=== PATIENT | female | born 1935 | race Caucasian/White ===

== ENCOUNTER → 2017-05-11 | Outpatient (CLI) | payer OTHER ==
[~2017-05-11] MED LIST: DEPO METHYLPREDNISOLONE 40 MG/ML SDV ONE; DEPO METHYLPREDNISOLONE 80 MG/ML SDV ONE; IOPAMIDOL (ISOVUE 370) 100 ML BTL IV ONE; LIDOCAINE 1% 300 MG/30 ML SDV ONE; ROPIVACAINE HCL 150 MG/30 ML INJ ONE
== END ==
LOC: FIMAGING 14:03
PROVIDERS: ATTEND Physician Assistant
PROC: 3E0U3BZ Introduction of Anesthetic Agent into Joints, Percutaneous Approach (ICD-10-PCS; principal; 2017-05-11)
PROC: 3E0U33Z Introduction of Anti-inflammatory into Joints, Percutaneous Approach (ICD-10-PCS; principal; 2017-05-11)
DX: M16.12 Unilateral primary osteoarthritis, left hip (principal)
CPT/HCPCS: 20610; 77002; J1030; J2795; Q9967; J1040

== ENCOUNTER 2017-05-20 14:20 | Inpatient (IN) | payer OTHER ==
[2017-05-20] MEDS ORDERED: fentaNYL 100 MCG/2 ML INJ IVP ONE (14:55)
--- NOTE | 2017-05-20 17:31 | EDPHY ---
H & P Time Seen by Provider: 05/20/17 14:22 HPI/ROS: CHIEF COMPLAINT: Left hip pain after fall HISTORY OF PRESENT ILLNESS: 81-year-old female presents to the emergency department by ambulance after she had a mechanical fall at home just prior to arrival. The patient has a history of severe osteoarthritis in both hips, especially her left hip. She is scheduled to have surgery by Dr. Isaias Beltre on 06/28/2017. She has been using a walker to help her get around at home over the last 2-3 weeks. Today apparently she lost her balance and then fell injuring her left hip. She was unable to get up off the ground and waited for her to come home about 30 minutes later and he called EMS to bring her to the hospital since he was able to pick her up off the floor. She denies losing consciousness. She does report hitting her head. Denies neck or back pain. Denies chest pain or difficulty breathing. Denies abdominal pain. She denies any presyncopal symptoms prior to her fall. Denies injury to the upper extremities or her right lower extremity. Denies pain in her left knee or ankle. REVIEW OF SYSTEMS: Constitutional: No fever, no chills. Eyes: No double or blurry vision. ENT: No sore throat. Respiratory: No cough, no shortness of breath. Cardiac: No chest pain. Gastrointestinal: No abdominal pain, vomiting or diarrhea. Genitourinary: No dysuria. Musculoskeletal: No neck or back pain. Skin: No rashes. Neurological: No headache. Past Medical/Surgical History: Left mastectomy, left knee replacement Social History: and lives independently with her in [place] Smoking Status: Never smoked Physical Exam: General Appearance: Alert, no distress. Mentating normally and answering questions appropriately. Her is at bedside. Patient has superficial abrasion and hematoma to the posterior right side of the scalp just superior to the mastoid bone. No palpable crepitus or other bony abnormality. Eyes: Pupils equal and round. Extraocular motions are all intact. ENT: Mouth: Mucous membranes moist. No dental injury or malocclusion. Respiratory: No wheezing, rhonchi, or rales, lungs are clear to auscultation. Cardiovascular: Regular rate and rhythm. Gastrointestinal: Abdomen is soft and nontender, no masses, no rebound or guarding, bowel sounds normal. Neurological: Alert and oriented x 3, cranial nerves II through XII grossly intact Skin: Hematoma with superficial abrasion to the right posterior aspect of the scalp as noted above. No suturable laceration. Warm and dry, no rashes. Musculoskeletal: Nontender to palpate along the cervical, thoracic or lumbar spine. Neck is supple. Extremities: Limited range of motion of the left hip secondary to pain. Her left leg appeared shortened compared to the right side. Nontender to palpate the left knee or left ankle. Full range of motion of the right lower extremity and upper extremities bilaterally. Psychiatric: Patient is oriented X 3, there is no agitation. Constitutional: Initial Vital Signs Temperature (C) 36.8 C 05/20/17 14:20 Heart Rate 98 05/20/17 14:20 Respiratory Rate 16 05/20/17 14:20 Blood Pressure 162/81 H 05/20/17 14:20 O2 Sat (%) 92 05/20/17 14:20 O2 Delivery Mode Room Air O2 (L/minute) 3 Allergies/Adverse Reactions: midazolam HCl [From Versed] Allergy (Verified 05/02/17 10:06) Other-Enter Comments Penicillins Allergy (Verified 05/02/17 10:06) Other-Enter Comments Home Medications: Medication Instructions Recorded Ascorbic Acid [Vitamin C 500 mg 500 mg PO DAILY 10/31/13 (OTC)] Aspirin [Aspirin 81mg (OTC)] 81 mg PO DAILY 10/31/13 Cholecalciferol Vit D3 [Vitamin D3 2,000 units PO DAILY 10/31/13 2000 units (OTC)] Glucosamine/Chondroitin 1 each PO DAILY 10/31/13 [Glucosamine/Chondroitin (OTC)] Ibuprofen [Motrin 600 mg (RX)] 600 mg PO BID PRN 10/31/13 Herbals/Supplements -Info Only 1 ea PO DAILY 04/25/17 Medical Decision Making - Diagnostics Imaging Results: Imaging Impressions Head CT 05/20/17 14:35 Impression: 1. Mild age-related atrophy. 2. No hemorrhage, mass effect, or definite acute peripheral infarct. 3. Mild microvascular ischemic disease. Findings discussed with Bernie Jolly PA-C at 16:29 hour, 05/20/2017. Hip X-Ray 05/20/17 14:35 Impression: Bilateral hip osteoarthritis, severe. No fracture identified. Extremity CT 05/20/17 16:37 Impression: 1. Marked degenerative changes left hip joint without evidence of acute fracture. Findings discussed with the medical certification specialist with Bernie Jolly PA-C at 17 :13 hour, 05/20/2017. ED Course/Re-evaluation: 81-year-old female presents to the emergency department by ambulance after she had a mechanical fall injuring her left hip. X-rays reveal no fractures. The patient is unable to ambulate. CT imaging of the brain is normal. Patient is unable to ambulate on her own. I offered admission to the hospital and both the patient and her feel that this is best since they live independently. I also feel that she is at great risk for a fall. The patient tells me that given her recent cortisone injection, she is unable to have surgery for at least 6 weeks post injection. The patient will be admitted to Dr. Michelle Toribio. Dr. Negro Toribio recommended obtaining CT of her left hip to make sure that there were no fractures. CT imaging of the hip reveals no fractures. Differential Diagnosis: Including but not limited to fracture, dislocation, contusion, sprain, syncope - Data Points Medications Given: Discontinued Medications Fentanyl (Sublimaze) 50 mcg IVP EDNOW ONE Stop: 05/20/17 14:56 Last Admin: 05/20/17 15:46 Dose: 50 mcg Departure - Departure Disposition: [facility] Inpatient Acute Clinical Impression: Left hip pain Osteoarthritis Qualifiers: Osteoarthritis location: hip Osteoarthritis type: primary Laterality: bilateral Qualified Code(s): M16.0 - Bilateral primary osteoarthritis of hip Condition: Good
[2017-05-20] MEDS: HYDROmorphONE/DILAUDID 1 MG/ML SYR IVP PRN ×2 (19:42→23:11)
[2017-05-20] MEDS ORDERED: ONDANSETRON 4 MG/2 ML VIAL IVP PRN (20:15)
[2017-05-20] MEDS ORDERED: ONDANSETRON DISINTEGRATING 4 MG TAB PO PRN (20:15)
[2017-05-20] MEDS ORDERED: ACETAMINOPHEN 500 MG TAB PO PRN (20:15)
[2017-05-20] MEDS ORDERED: HYDROCODONE/APAP 5/325 TAB PO PRN (20:15)
[2017-05-20 20:51] LABS: % IMMATURE GRANULYOCYTES 0.4 % (0.0-1.1); ABSOLUTE IMMATURE GRANULOCYTES 0.05 10^3/uL (0.00-0.10); ADD DIFF? NO; ADD MORPH? NO; ADD SCAN? NO; ATYPICAL LYMPHOCYTE FLAG 20 (0-99); FRAGMENT RBC FLAG 0 (0-99); HEMATOCRIT 37.7 % (38.0-47.0); HEMOGLOBIN 12.9 g/dL (12.6-16.3); LEFT SHIFT FLG 0 (0-99); LIPEMIA HEMOLYSIS FLAG 90 (0-99); MEAN CELL HEMOGLOBIN 30.5 pg (27.9-34.1); MEAN CELL HEMOGLOBIN CONCENTR. 34.2 g/dL (32.4-36.7); MEAN CELL VOLUME 89.1 fL (81.5-99.8); MEAN PLATELET VOLUME 10.4 fL (8.7-11.7); PLATELET CLUMPS FLAG 0 (0-99); PLATELET COUNT 134 10^3/uL (150-400); RED BLOOD CELL COUNT 4.23 10^6/uL (4.18-5.33); RED CELL DISTRIBUTION WIDTH 14.9 % (11.5-15.2)
[2017-05-20 20:59] LABS: ANION GAP 9 mEq/L (8-16); CALCIUM 9.3 mg/dL (8.5-10.4); CARBON DIOXIDE 20 mEq/l (22-31); CHLORIDE 103 mEq/L (97-110); CREATININE 0.9 mg/dL (0.6-1.0); GLOMERULAR FILTRATION RATE 60; GLUCOSE 137 mg/dL (70-100); POTASSIUM 4.3 mEq/L (3.5-5.2); SODIUM 132 mEq/L (134-144)
--- NOTE | 2017-05-20 21:03 | GHP ---
[f rep st] HISTORY AND PHYSICAL DATE OF ADMISSION: 05/20/2017 CHIEF COMPLAINT: Left hip pain. HISTORY OF PRESENT ILLNESS: Patient is an 81-year-old female with a history of severe hip osteoarthritis who presents to the emergency department after a fall with left hip pain. She recently underwent an intra-articular joint injection of her left hip, as well as a left greater trochanteric bursa steroid injection. She states she felt her pain was improved for a few days but the pain became more severe. She has been ambulating independently at home with a walker but unfortunately lost her balance today resulting in the fall. She believes she tripped. She thinks she hit her head but she denies any loss of consciousness. She was unable to get up and when her arrived home 30 minutes later EMS was called and she was brought to the emergency department. She has no back pain or neck pain. She has plans to undergo a hip replacement on June [address] Beltre. She denies fevers, chills, chest pain, or shortness of breath. She has no abdominal pain, nausea, vomiting, diarrhea, or changes in her bowel or bladder habits. Her pain regimen at home consists of ibuprofen 600 mg twice daily. She was given a prescription for tramadol but has not yet filled this. In the emergency department she received 50 mcg of IV fentanyl and she is admitted to the hospital for pain control and inability to ambulate safely. PAST MEDICAL AND SURGICAL HISTORY: 1. Severe osteoarthritis in both hips. 2. Left mastectomy. 3. Left knee replacement. MEDICATIONS: Please see [facility] for complete updated outpatient medication list. ALLERGIES: Midazolam and penicillin. SOCIAL HISTORY: The patient is a lifetime nonsmoker. She reports 1 glass of wine per day 6 days a week. 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 FAMILY HISTORY: Reviewed and noncontributory. PHYSICAL EXAMINATION: VITAL SIGNS: Temperature is 37.4, blood pressure 152/84 , heart rate 98, respiratory rate 16, she is 96% on 1 L. GENERAL: The patient is awake, alert, oriented in no acute distress. HEENT: Head is atraumatic, normocephalic. Pupils equal, round, react to light. Extraocular muscles are intact. Oropharynx clear. Mucous members are moist. NECK: Supple. There is no JVD. HEART: Regular rate AND rhythm without murmur. LUNGS: Clear to auscultation bilaterally. ABDOMEN: Soft, nondistended, nontender. Normoactive bowel sounds. EXTREMITIES: Without cyanosis, clubbing, or edema. She has tenderness over her left greater trochanter and any movement of the hip including flexion or adduction. LABORATORY DATA: We will check a CBC and basic metabolic panel. Head CT shows mild age related atrophy. No hemorrhage, mass effect, or definite acute peripheral infarct. There is mild microvascular ischemic disease noted. Left hip x-ray shows bilateral hip osteoarthritis, which is severe. No fracture is identified. CT of the left lower extremity showed marked degenerative changes of the left hip without evidence of acute fracture. ASSESSMENT AND PLAN: Patient is an 81-year-old female with history of severe osteoarthritis who presents to the emergency department after a fall with increased left hip pain. 1. Left hip pain in the setting of severe osteoarthritis. As above, she is awaiting to undergo a hip replacement on June 28. She recently underwent steroid injection of the hip joint, as well as the trochanteric bursa. There is no evidence of fracture on her imaging. She is admitted for acute pain control, as well as physical therapy, occupational therapy. We will give her scheduled Tylenol and continue her Celebrex. Will start her on oral tramadol with low doses of p.r.n. IV Dilaudid as needed for pain control. Physical therapy, occupational therapy evaluations are requested. We can also touch base with her orthopedic surgeon in the morning to alert him of her admission. 2. Leukocytosis. This may be a stress response in setting of acute pain. No focal signs or symptoms of infection and she is afebrile. Will follow. If wbc' s on the rise, consider further w/u with CXR, UA, etc. 3. Hyponatremia. Very mild. Query volume depletion given poor oral intake due to pain since the fall. Will gently hydrate with NS and recheck in am. CODE STATUS: Patient is full code. DVT PROPHYLAXIS: Lovenox. DISPOSITION: Patient admitted to observation status, though should she require ongoing hospitalization due to difficulty with ambulation or further needs for pain control she will need to be changed to inpatient status tomorrow. /[id number]/MODL MTDD
[2017-05-20] MEDS: ACETAMINOPHEN 500 MG TAB PO SCH (21:41)
[2017-05-20] MEDS: traMADol 50 MG TAB PO PRN (21:42)
[2017-05-21] MEDS ORDERED: NS 1,000 ML IV SCH (02:00)
[2017-05-21] MEDS: ACETAMINOPHEN 500 MG TAB PO SCH ×3 (04:44→19:35)
[2017-05-21 04:54] LABS: % IMMATURE GRANULYOCYTES 0.5 % (0.0-1.1); ABSOLUTE IMMATURE GRANULOCYTES 0.06 10^3/uL (0.00-0.10); ADD DIFF? NO; ADD MORPH? NO; ADD SCAN? NO; ATYPICAL LYMPHOCYTE FLAG 0 (0-99); FRAGMENT RBC FLAG 0 (0-99); HEMATOCRIT 34.8 % (38.0-47.0); HEMOGLOBIN 11.8 g/dL (12.6-16.3); LEFT SHIFT FLG 20 (0-99); LIPEMIA HEMOLYSIS FLAG 90 (0-99); MEAN CELL HEMOGLOBIN 30.6 pg (27.9-34.1); MEAN CELL HEMOGLOBIN CONCENTR. 33.9 g/dL (32.4-36.7); MEAN CELL VOLUME 90.4 fL (81.5-99.8); MEAN PLATELET VOLUME 10.3 fL (8.7-11.7); PLATELET CLUMPS FLAG 0 (0-99); PLATELET COUNT 130 10^3/uL (150-400); RED BLOOD CELL COUNT 3.85 10^6/uL (4.18-5.33); RED CELL DISTRIBUTION WIDTH 14.9 % (11.5-15.2)
[2017-05-21 04:59] LABS: COLOR YELLOW; LEUKOCYTE ESTERASE,URINE NEGATIVE (NEGATIVE); NITRITE,URINE NEGATIVE (NEGATIVE)
[2017-05-21 05:07] LABS: ANION GAP 7 mEq/L (8-16); CALCIUM 8.9 mg/dL (8.5-10.4); CARBON DIOXIDE 22 mEq/l (22-31); CHLORIDE 106 mEq/L (97-110); CREATININE 0.9 mg/dL (0.6-1.0); GLOMERULAR FILTRATION RATE 60; GLUCOSE 107 mg/dL (70-100); POTASSIUM 4.5 mEq/L (3.5-5.2); SODIUM 135 mEq/L (134-144)
[2017-05-21 05:21] LABS: MUCUS TRACE /lpf (NONE-1+)
[2017-05-21] MEDS: ASPIRIN 81 MG CHEWABLE TAB PO SCH (08:01)
[2017-05-21] MEDS: traMADol 50 MG TAB PO PRN (08:47)
[2017-05-21] MEDS: ENOXAPARIN 40 MG/0.4 ML SYR SC SCH (10:04)
[2017-05-21] MEDS ORDERED: POLYETHYLENE GLYCOL 3350 17 GM PKT PO PRN (11:35)
[2017-05-21] MEDS ORDERED: LACTULOSE 20 GM/30 ML UDCUP PO PRN (11:35)
[2017-05-21] MEDS ORDERED: MAGNESIUM HYDROXIDE 30 ML UDCUP PO PRN (11:35)
[2017-05-21] MEDS ORDERED: BISACODYL 10 MG SUPP PR PRN (11:35)
--- NOTE | 2017-05-21 12:06 | HOSPPROG ---
Hospitalist Progress Note Assessment/Plan: 81 y/o female with severe OA and degeneration of the left hip presenting with #uncontrolled left hip pain most likely due to severe OA doubt septic joint -dc ultram and trail norco -cont celebrex -case d/w Dr. Patel who will see her in consultation #hyponatremia (resolved) #leukocytosis (improving) Will change to inpatient status since she is unable to walk and is not safe fro dc Subjective: continues to have severe pain in the left hip. no fevers or chills. not feeling strong enough to go home Objective: Vital Signs Temp Pulse Resp BP Pulse Ox 36.5 C 77 12 128/65 H 94 05/21/17 08:00 05/21/17 08:00 05/21/17 08:00 05/21/17 08:00 05/21/17 08:00 Laboratory Results 05/21/17 04:17 05/21/17 04:17 05/20/17 05/21/17 05/22/17 05:59 05:59 05:59 Intake Total 800 Output Total 425 Balance 375 - Physical Exam Constitutional: no apparent distress, appears nourished, not in pain Cardiovascular: regular rate and rhythym, no murmur, rub, or gallop Respiratory: no respiratory distress, no rales or rhonchi, clear to auscultation Gastrointestinal: normoactive bowel sounds, soft, non-tender abdomen, no palpable masses Musculoskeletal: other (tender to palp left great troch) ICD10 Worksheet Patient Problems: Problems Problem Status Onset Primary osteoarthritis of left knee Acute Left hip pain Acute Osteoarthritis Acute
[2017-05-21] MEDS: HYDROCODONE/APAP 5/325 TAB PO PRN ×3 (13:18→22:02)
--- NOTE | 2017-05-21 14:50 | GCON ---
[f rep st] CONSULTATION ORTHOPEDIC CONSULTATION DATE OF CONSULTATION: 05/21/2017 REASON FOR CONSULTATION: Left hip pain. HISTORY OF PRESENT ILLNESS: The patient is a very pleasant 81-year-old female with severe osteoarth ritis of the left hip who has a planned total hip procedure June [address] Beltre. She rec ently received both a greater trochanteric injection as well as an intra-articular cortisone injecti on. This did nothing to relieve her pain. The pain has gotten progressively worse. She was admitt ed to the hospital because of pain at home and difficulty ambulating. A CT scan was obtained which was negative for an acute fracture. PRIOR MEDICAL HISTORY: Mastectomy. She has had a knee replaced and she has severe osteoarthritis o f both hips. MEDICATIONS: Please see attached list. ALLERGIES: Penicillin and midazolam. SOCIAL HISTORY: Non smoker. Occasional alcohol use. 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 REVIEW OF SYSTEMS: Other than hip pain, is negative. PHYSICAL EXAM: VITAL SIGNS: Her vital signs today on the floor: Blood pressure is 128/65, heart r ate 77, respiratory rate is 12, oxygen saturation is 94% on 1 L. Temperature is 36.5. GENERAL: Sh e is alert and oriented x3. HEENT: Normocephalic, atraumatic. Extraocular muscles intact. NECK: Supple. There is no lymphadenopathy. No JVD. CHEST: Clear to auscultation. CARDIOVASCULAR: Re gular rate and rhythm. ABDOMEN: Soft, nontender, nondistended. EXTREMITIES: She is tender over t he greater trochanter as well as anteriorly over the hip. Leg lengths are equal. Range of motion i s quite restricted in the hip, and I avoided much motion with that hip. She has near full extension , about 90 degrees of flexion, 0 degrees of internal rotation, and 0 degrees of external rotation. Her calf is soft. Motor strength is intact in the left lower extremity at 5/5. IMAGING: Including plain films and CT scan, show severe osteoarthritis of the left hip. There is n o acute fracture seen. ASSESSMENT: Severe osteoarthritis. PLAN: We had a long discussion. The patient has now had 2 doses of steroid in a close period of ti me. We do need to wait about 6 weeks before we proceed with total hip arthroplasty, which fits with her June [address] Beltre. If we can get her on an oral pain management regimen, we can get her home. She is in agreement with that plan. She will continue to work with Dr. Howard on pain medications, and I anticipate her discharging home in the next day or two. /[id number]/MODL
[2017-05-21] MEDS: SENNOSIDES/DOCUSATE SODIUM TAB PO SCH (19:35)
[2017-05-22] MEDS: ACETAMINOPHEN 500 MG TAB PO SCH ×3 (06:47→19:53)
[2017-05-22] MEDS: SENNOSIDES/DOCUSATE SODIUM TAB PO SCH ×2 (08:43→19:54)
[2017-05-22] MEDS: HYDROCODONE/APAP 5/325 TAB PO PRN ×3 (08:44→20:29)
[2017-05-22] MEDS: ASPIRIN 81 MG CHEWABLE TAB PO SCH (08:44)
[2017-05-22] MEDS: ENOXAPARIN 40 MG/0.4 ML SYR SC SCH (08:46)
--- NOTE | 2017-05-22 12:54 | HOSPPROG ---
Hospitalist Progress Note Assessment/Plan: 81 y/o female with severe OA and degeneration of the left hip presenting with #uncontrolled left hip pain most likely due to severe OA doubt septic joint -dc ultram and continue norco -cont celebrex -case d/w Dr. Patel who will see her in consultation #hyponatremia (resolved) #leukocytosis (improving) continue inpatient care since she is not safe to dc home Subjective: left hip pain is improving with norco. able to amulate with diffuculty using walker. no fevers or chills. does not feel safe to go home Objective: Vital Signs Temp Pulse Resp BP Pulse Ox 37.2 C 92 18 146/75 H 92 05/22/17 07:25 05/22/17 07:25 05/22/17 07:25 05/22/17 07:25 05/22/17 07:25 05/21/17 05/22/17 05/23/17 05:59 05:59 05:59 Intake Total 400 Output Total 375 Balance 25 - Physical Exam Eyes: PERRL, anicteric sclera, EOMI Cardiovascular: regular rate and rhythym, no murmur, rub, or gallop Respiratory: no respiratory distress, no rales or rhonchi, clear to auscultation Gastrointestinal: normoactive bowel sounds, soft, non-tender abdomen, no palpable masses Musculoskeletal: other (left hip is not warm to touch but continues to be tender to palp over the greater trochanter) ICD10 Worksheet Patient Problems: Problems Problem Status Onset Primary osteoarthritis of left knee Acute Left hip pain Acute Osteoarthritis Acute
[2017-05-22 16:23] VITALS: RESP 16; TEMP 98.4
[2017-05-23] MEDS: HYDROCODONE/APAP 5/325 TAB PO PRN ×3 (02:03→13:13)
[2017-05-23] MEDS: ACETAMINOPHEN 500 MG TAB PO SCH ×2 (04:40→12:30)
[2017-05-23 08:24] VITALS: BP 122/68; PULSE 84; O2SAT 89
[2017-05-23] MEDS: ENOXAPARIN 40 MG/0.4 ML SYR SC SCH (09:22)
[2017-05-23] MEDS: ASPIRIN 81 MG CHEWABLE TAB PO SCH (09:25)
[2017-05-23] MEDS: SENNOSIDES/DOCUSATE SODIUM TAB PO SCH (09:26)
--- NOTE | 2017-05-23 10:23 | PDIAF ---
- Diagnosis Diagnosis: hip pain and inability to ambulate Code Status: Full Code - Medication Management Discharge Medications: Medications to Continue on Transfer Ascorbic Acid [Vitamin C 500 mg (*)] 500 mg PO DAILY 10/31/13 [Last Taken ] Aspirin [Aspirin 81mg (*)] 81 mg PO DAILY 10/31/13 [Last Taken 11/22/13] Glucosamine/Chondroitin [Glucosamine/Chondroitin (*)] 1 each PO DAILY 10/31/13 [ Last Taken 11/22/13] Herbals/Supplements -Info Only 1 ea PO DAILY 04/25/17 [Last Taken Unknown] celeCOXIB [Celecoxib] 200 mg PO DAILY 05/20/17 [Last Taken Unknown] Docusate Sodium [Colace 100 MG (*)] 100 mg PO BID #60 cap 05/23/17 [Last Taken Unknown] Hydrocodone/APAP 5/325 [[place] 5/325 (*)] 1 - 2 tab PO Q6 PRN #0 tab 05/23/17 [ Last Taken Unknown] Discharge Medications: Refer to the Discharge Home Medication list for PRN reason. - Orders Services needed: Physical Therapy, Occupational Therapy Diet Recommendation: no restrictions on diet Diet Texture: Regular Texture Diet - Follow Up Care Current Providers and Referrals: Colton Plata MD [Primary Care Provider] -
--- NOTE | 2017-05-23 20:12 | GDS ---
[f rep st] DISCHARGE SUMMARY DISCHARGE DIAGNOSES: 1. Uncontrolled left hip pain, most likely due to severe osteoarthritis, awaiting total hip replace ment. 2. Resolved hyponatremia. 3. Leukocytosis. CONSULTANTS: Dr. Sterling Patel, Orthopedics. HOSPITAL COURSE AND STAY BY PROBLEM: Severe left hip pain: The patient presented to the hospital w ith severe left hip pain that was getting in the way of her being able to live safely at home indepe ndently. She has recently undergone steroid injections which preclude her from being able to underg o a total hip replacement now, which is recommended. She is currently scheduled to have her hip rep laced by Dr. Beltre on June 28. The patient presented to the hospital taking Ultram, which was not helping. She has subsequently be en started on [place] 5/325, one to two tablets every 6 hours which is helping with her pain. She has been seen by Physical Therapy, who are recommending [facility] facility placement for now. I should note that during this hospital stay, the patient did refuse Lovenox for DVT prophylaxis. PHYSICAL EXAM: VITAL SIGNS: On day of discharge, blood pressure 122/68, pulse of 84, respiratory r ate 16, O2 saturation 89% on room air. Temperature afebrile. GENERAL: No acute distress. HEART: S1, S2. LUNGS: Clear. No wheezes, rales, or rhonchi. Normal respiratory effort. PERTINENT LABS AND STUDIES: CT of the hip done 05/20/2017, refer to report. Head CT done 05/20/2017, refer to report. DISCHARGE MEDICATIONS: Please refer to discharge medication reconciliation in [facility]. DISCHARGE INSTRUCTIONS: The patient will be transferred to [facility] for further rehabilitat ion. She should follow up with Dr. Beltre as directed for preop appointment for a total hip repl acement. /[id number]/MODL
== END 2017-05-23 13:28 | DRG 554 ==
LOC: EDUNIT# → F3N 17:21 → OBSVTOIN 05-21 12:07
PROVIDERS: ADMIT Hospitalist; ATTEND Hospitalist
DX: M16.0 Bilateral primary osteoarthritis of hip (principal); E87.1 Hypo-osmolality and hyponatremia; W19.XXXA Unspecified fall, initial encounter; Z96.652 Presence of left artificial knee joint
CPT/HCPCS: 92523-GN; 96374; 97110-GP; 97116-GP; 97162-GP; 97165-GO; 97535-GO; G0378; G8978-GP-CK; G8979-GP-CI; G8980-GP-CJ; G8987-GO-CK; G8988-GO-CI; G9165-GN-CH; G9166-GN-CH; G9167-GN-CH; J1170; J3010

== ENCOUNTER → 2017-05-30 | Outpatient (CLI) | payer OTHER | LOC: FIMAGING 14:31 | PROVIDERS: ATTEND Physician Assistant | DX: M25.552 Pain in left hip (principal); M16.12 Unilateral primary osteoarthritis, left hip; M25.452 Effusion, left hip; R93.8 Abnormal findings on diagnostic imaging of other specified body structures ==

== ENCOUNTER → 2017-06-02 | Outpatient (CLI) | payer OTHER ==
[~2017-06-02] MED LIST changes: -DEPO METHYLPREDNISOLONE 80 MG/ML SDV ONE
[2017-06-02 15:55] LABS: WBC, SYNOVIAL FLUID 53 /mm3 (0-150)
== END ==
LOC: FIMAGING 12:21
PROVIDERS: ATTEND Physician Assistant
PROC: 0S9B3ZZ Drainage of Left Hip Joint, Percutaneous Approach (ICD-10-PCS; principal; 2017-06-02)
DX: M16.12 Unilateral primary osteoarthritis, left hip (principal)
CPT/HCPCS: 20610; 77002; J1030; Q9967; J2795

== ENCOUNTER 2017-06-04 09:17 | Inpatient (IN) | payer OTHER ==
[2017-06-04] MEDS ORDERED: VANCOMYCIN HCL/NORMAL SALINE 250 ML IV SCH (11:30)
[2017-06-04] MEDS ORDERED: POLYMYXIN B SULFATE 500,000 UNIT/10 ML SYR IRR ONE ×4 (12:24→14:49)
[2017-06-04] MEDS ORDERED: BUPIVACAINE 0.5% 30 ML SDV ONE (12:24)
[2017-06-04] MEDS ORDERED: LIDOCAINE 1% 300 MG/30 ML SDV ONE (12:24)
[2017-06-04] MEDS ORDERED: BACITRACIN 50,000 UNITS/10 ML SYR IRR ONE ×3 (12:25→14:41)
--- NOTE | 2017-06-04 13:22 | PCMIDPN ---
Assessment/Plan: Assessment/Plan: * Coagulase negative staphylococcal bacteremia with concern due to septic arthritis or left hip osteomyelitis: Both sets of blood cultures obtained on are now growing staphylococcal species with 1st set identified as coagulase-negative Staph by BCID PCR. No other etiology for bacteremia. Persistent debilitating hip pain and marked increase in CRP also present. Have reviewed with Orthopedic surgery and agree that incision and drainage of hip should be performed to further define septic arthritis/osteomyelitis as this will be both important from diagnostic and therapeutic standpoint. Will repeat blood cultures prior to initiation of antibiotic therapy to confirm bacteremia. Will hold initiation of vancomycin pending operative cultures. Above findings and plan were discussed with patient, , and Dr. Luna. Time spent, greater than 35 minutes, of which greater than half was spent in coordination of care related to bacteremia, hospitalization, and ongoing clinical evaluation and plan of care. 06/04/17 13:17 06/04/17 13:26 Subjective: Notified by microbiology lab this a.m. that 2nd set of blood cultures also with growth of gram-positive cocci in clusters. Initially 1 set positive yesterday for coagulase-negative Staphylococcus. Lab testing Monday also revealed marked increase in C-reactive protein. Based on both sets of blood cultures being positive, patient and were contacted with recommendation for hospitalization for further evaluation and initiation of IV antibiotic therapy. Patient complains of persistent debilitating hip pain which prevents ambulation. Continues to feel fatigued without fever or chills. Please see my [place] note from visit of 06/02/2017 for details. I have requested orthopedic evaluation based on above findings. Objective: Blood cultures from 06/02/2017 with 2/2 sets ( 1 set only with 1 bottle drawn) showing Gram-positive cocci in clusters with initial set confirmed as coagulase- negative Staphylococcus by PCR testing Hip aspirate cultures no growth C-reactive protein 186.0 MRI findings as previously outlined in my office note. - Physical Exam General Appearance: alert, non-toxic, other ( mild distress due to hip pain) EENT: pharynx normal, No conjunctival petechiae Respiratory: lungs clear, No respiratory distress Cardiac/Chest: regular rate, rhythm Extremities: inflammation (left hip with mild edema over musculature with mild warmth; no erythema; tender laterally and over hip joint itself with significant irritability with range of motion) Skin: No embolic lesions ICD10 Worksheet Patient Problems: Problems Problem Status Onset Bacteremia due to Staphylococcus Acute Left hip pain Acute Osteoarthritis Acute Primary osteoarthritis of left knee Acute
[2017-06-04] MEDS ORDERED: VANCOMYCIN 1 GM/NS 250 ML BAG IV ONE (13:30)
--- NOTE | 2017-06-04 13:32 | PDANEPAE ---
ANE History of Present Illness L hip ID ANE Past Medical History - Cardiovascular History Hx Hypertension: No Hx Arrhythmias: No Hx Chest Pain: No Hx Coronary Artery / Peripheral Vascular Disease: No Hx CHF / Valvular Disease: No Hx Palpitations: No Cardiovascular History Comment: denies chest pain, palp. unsure family hx. - Pulmonary History Hx COPD: No Hx Asthma/Reactive Airway Disease: No Hx Recent Upper Respiratory Infection: No Hx Oxygen in Use at Home: No Hx Sleep Apnea: No Pulmonary History Comment: denies sob up 2 flights. 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 Polio hx -no residual affects. - Chronic Pain History Chronic Pain: No - Surgical History Prior Surgeries: L total knee 2014. l knee arthroscopy. 1996. L mastectomy 1996. r lg toe orif. neuroma R ft. bilat carpal tunnels. "anchovie" procedure R hand ANE Review of Systems Review of systems is: negative - Exercise capacity Exercise capacity: limited by disability ANE Patient History - Allergies Allergies/Adverse Reactions: midazolam HCl [From Versed] Allergy (Verified 05/02/17 10:06) Other-Enter Comments Penicillins Allergy (Verified 05/02/17 10:06) Other-Enter Comments - Home Medications Home Medications: Ascorbic Acid [Vitamin C 500 mg (*)] 500 mg PO DAILY 10/31/13 [Last Taken ] Aspirin [Aspirin 81mg (*)] 81 mg PO DAILY 10/31/13 [Last Taken 11/22/13] Glucosamine/Chondroitin [Glucosamine/Chondroitin (*)] 1 each PO DAILY 10/31/13 [ Last Taken 11/22/13] Herbals/Supplements -Info Only 1 ea PO DAILY 04/25/17 [Last Taken Unknown] celeCOXIB [Celecoxib] 200 mg PO DAILY 05/20/17 [Last Taken Unknown] traMADol [Ultram 50 mg (*)] 50 mg PO 06/04/17 [Last Taken Unknown] - NPO status NPO Since - Liquids (Date): 06/04/17 NPO Since - Liquids (Time): 09:00 NPO Since - Solids (Date): 06/04/17 NPO Since - Solids (Time): 09:00 - Anes Hx Anes Hx: no prior problems - Smoking Hx Smoking Status: Never smoked - Family Anes Hx Family Anes Hx: none Family Hx Anesthesia Complications: none ANE Labs/Vital Signs - Vital Signs Height: 160.02 cm Weight: 68.039 kg ANE Physical Exam - Airway Neck exam: FROM Mallampati Score: Class 1 Mouth exam: normal dental/mouth exam - Pulmonary Pulmonary: no respiratory distress - Cardiovascular Cardiovascular: regular rate and rhythym - ASA Status ASA Status: II, E ANE Anesthesia Plan Anesthesia Plan: general endotracheal anesthesia (RSI)
--- NOTE | 2017-06-04 13:32 | SOAPPROG ---
SOAP Progress Note Assessment/Plan: Assessment: Pt is a pleasant 81 year old female admitted by infectious for left hip pain as well as positive blood cultures. She had an intraarticular hip injection on May 11 and noticed increasing pain and difficulty weight bearing on the . She had hip aspiration which was negative, however, blood cultures are positive and she is having increasing pain in the left groin. PE: Severe pain in the groin with gentle ROM of the left hip. Unable to weight bear NV intact LLE Plan: 1. Risks, benefits, and alternatives were discussed with the patient and her and she will be taken to the OR at its earliest convenience for left hip irrigation and debridement. 06/04/17 13:25 06/04/17 15:36 ICD10 Worksheet Patient Problems: Problems Problem Status Onset Bacteremia due to Staphylococcus Acute Left hip pain Acute Osteoarthritis Acute Primary osteoarthritis of left knee Acute
[2017-06-04] MEDS ORDERED: LIDOCAINE 2% 100 MG/5 ML SYR ONE (13:33)
[2017-06-04] MEDS ORDERED: DEXAMETHASONE 4 MG/ML VIAL ONE (13:33)
[2017-06-04] MEDS ORDERED: ONDANSETRON 4 MG/2 ML VIAL ONE (13:33)
[2017-06-04] MEDS ORDERED: ROCURONIUM 50 MG/5 ML VIAL ONE (13:34)
[2017-06-04] MEDS ORDERED: PROPOFOL 200 MG/20 ML VIAL ONE (13:34)
[2017-06-04] MEDS ORDERED: fentaNYL 100 MCG/2 ML INJ ONE ×3 (13:34→15:51)
[2017-06-04] MEDS ORDERED: ONDANSETRON DISINTEGRATING 4 MG TAB PO PRN (13:40)
[2017-06-04] MEDS ORDERED: ONDANSETRON 4 MG/2 ML VIAL IVP PRN ×2 (13:40→14:33)
[2017-06-04] MEDS ORDERED: HYDROmorphONE/DILAUDID 1 MG/ML SYR IVP PRN (13:44)
[2017-06-04] MEDS ORDERED: MAGNESIUM HYDROXIDE 30 ML UDCUP PO PRN (13:45)
[2017-06-04] MEDS ORDERED: LACTULOSE 20 GM/30 ML UDCUP PO PRN (13:45)
[2017-06-04] MEDS ORDERED: POLYETHYLENE GLYCOL 3350 17 GM PKT PO PRN (13:45)
[2017-06-04] MEDS ORDERED: BISACODYL 10 MG SUPP PR PRN (13:45)
--- NOTE | 2017-06-04 13:49 | PDGENHP ---
History and Physical - Chief Complaint Acute hip pain - History of Present Illness 81-year-old female presenting with acute hip pain located in the left hip characterized as sharp, exacerbated by movement and weight-bearing, with onset of symptoms around 05/22/2017. Prior to that time, the patient had reportedly been experiencing which she believes was osteoarthritic hip pain and she was receiving steroid injections. Most recent injection was 05/11/2017. She then presented to [facility] for severe and debilitating pain, was seen in consultation by Dr. Patel, received medication adjustment and transfer to [facility] rehab facility where she was to await a scheduled hip replacement surgery by Dr. Beltre. Since transition to rehab, the patient reports that her pain has been alleviated by oxycodone immediate release and she was recently placed on twice daily sustained release dosing as well as 5 mg immediate release for breakthrough pain. She reports that she has been moving her bowels well and has been utilizing Colace and fiber supplement. She was seen in Infect[facility] Disease [facility] for follow-up and had blood cultures from 06/02 that demonstrated Gram-positive cocci in clusters in 2/2 bottles. She also had a hip aspirate which did not demonstrate any significant and fusion but sample was sent for Gram stain, culture currently negative. History Information - Allergies/Home Medication List Allergies/Adverse Reactions: midazolam HCl [From Versed] Allergy (Verified 05/02/17 10:06) Other-Enter Comments Penicillins Allergy (Verified 05/02/17 10:06) Other-Enter Comments Home Medications: Ascorbic Acid [Vitamin C 500 mg (*)] 500 mg PO DAILY 10/31/13 [Last Taken ] Aspirin [Aspirin 81mg (*)] 81 mg PO DAILY 10/31/13 [Last Taken 11/22/13] Glucosamine/Chondroitin [Glucosamine/Chondroitin (*)] 1 each PO DAILY 10/31/13 [ Last Taken 11/22/13] Herbals/Supplements -Info Only 1 ea PO DAILY 04/25/17 [Last Taken Unknown] celeCOXIB [Celecoxib] 200 mg PO DAILY 05/20/17 [Last Taken Unknown] traMADol [Ultram 50 mg (*)] 50 mg PO 06/04/17 [Last Taken Unknown] I have personally reviewed and updated: family history, medical history, social history, surgical history - Past Medical History Additional medical history: Breast cancer status post radiation therapy in 1996. Osteoporosis. Bilateral hip osteoarthritis - Surgical History Additional surgical history: Bilateral mastectomy. Left total knee replacement 2003 - Family History Additional family history: Relative with unknown arthritis - Social History Smoking Status: Never smoked Alcohol Use: Other (Daily a glass of wine, never experienced alcohol withdrawal) Drug Use: None Additional social history: Currently supported at [facility] Review of Systems ROS: 10pt was reviewed & negative except for what was stated in HPI & below Constitutional: Reports: other (Pain) Muscolosketal: Reports: other (Left hip pain) Physical Exam Constitutional: no apparent distress, appears nourished, uncomfortable, No not in pain Eyes: anicteric sclera, EOMI, other (Constricted pupils) Ears, Nose, Mouth, Throat: hearing normal, no oral mucosal ulcers, other ( Slightly tacky mucous membranes) Cardiovascular: tachycardia, No systolic murmur, No irregularly irregular, No edema Respiratory: no respiratory distress, no rales or rhonchi, clear to auscultation Gastrointestinal: normoactive bowel sounds, soft, non-tender abdomen, no palpable masses, No distension Genitourinary: beckwith in urethra, other (Clear urine) Skin: other (No erythema or ecchymoses over the left hip) Musculoskeletal: other (Mild tenderness to palpation over the left hip) Neurologic: AAOx3, No facial droop Psychiatric: interacting appropriately, not anxious, not encephalopathic, thought process linear Assessment & Plan Assessment: 81-year-old female presenting with bacteremia and suspected septic arthritis Plan: 1. Bacteremia. Acute, new problem this provider, further workup indicated. Gram-positive cocci in clusters growing in 2/2 bottles from 06/02/2017, suspected to be Staph aureus and potential source is left hip, CRP 186 -per Infectious Disease consultation by Dr. Colton Gallego, hold on antibiotics until additional set of blood cultures have been performed and sample washings have been taken from the hip -further antibiotics per infectious disease -continue to monitor 06/02 speciation and sensitivity -white blood cell count from 05/21/2017 was 11,100, repeat CBC in a.m. -echocardiogram from 11/21/2013 demonstrates diastolic dysfunction, mild mitral regurgitation, mild aortic insufficiency, if blood cultures are not clearing appropriately, would recommend initial transthoracic echocardiogram 2. Suspected septic arthritis. Acute, new problem this provider, further workup indicated. Left hip, with significantly limited range of motion secondary to pain, suggestive of septic arthritis -reviewed outside records including 06/02/[address] Tim Moses , reports that aspirate of left hip was somewhat limited with no significant effusion and sample collected albeit possibly from a dry tap -getting washout at this time by Dr. Luna, samples to be sent for culture, appreciate ongoing orthopedics daily consultation -pain management with oral oxycodone immediate release, IV Dilaudid for breakthrough, bowel regimen, incentive spirometer, will order sustained release oxycodone once reconciled Diet. NPO currently, regular diet after surgery Prophylaxis. High risk patient, SCDs perioperatively, initiate Lovenox 40 when deemed safe by Orthopedic surgery Code. Full Disposition. Anticipated discharge uncertain this time, anticipated length stay is greater than 48 hours warranting inpatient admission status for reasonable medical necessity including bacteremia with suspected septic arthritis requiring further workup and surgical control of source. I have discussed patient's presentation with Dr. Niall Dahl, he has signed the patient out to me for admission.
[2017-06-04] MEDS ORDERED: NALOXONE HCL 0.4 MG/ML INJ IVP PRN (14:33)
[2017-06-04] MEDS ORDERED: MEPERIDINE 25 MG/ML SYR IVP PRN (14:33)
[2017-06-04] MEDS ORDERED: PROMETHAZINE HCL 25 MG/ML INJ IVP PRN (14:33)
[2017-06-04] MEDS ORDERED: DEXAMETHASONE 4 MG/ML VIAL IVP PRN (14:33)
[2017-06-04] MEDS ORDERED: HYDROCODONE/APAP 5/325 TAB PO PRN (14:33)
[2017-06-04] MEDS ORDERED: ACETAMINOPHEN 500 MG TAB PO PRN (14:33)
[2017-06-04] MEDS ORDERED: OXYCODONE/APAP 5/325 TAB PO PRN (14:33)
--- NOTE | 2017-06-04 14:37 | POSTANESTH ---
Post Anesthetic Evaluation Cardiovascular Status: Normal, Stable, Similar to Pre-Op Cond Respiratory Status: Normal, Stable, Similar to Pre-op Cond. Level of Consciousness/Mental Status: Can Participate in Eval, Mildly Sleepy, Arousable Pain Control: Adequate, Prn Tx Ordered Nausea/Vomiting Control: Adequate, Prn Tx Ordered Complications Possibly Related to Anesthesia: None Noted
--- NOTE | 2017-06-04 15:37 | POSTOPPROG ---
Post Op Note Date of Operation: 06/04/17 Surgeon: Alexis Luna Engrosser: Yari Sahu PA-C Anesthesia: GET(General Endotracheal) Pre-op Diagnosis: left hip septic arthritis Post-op Diagnosis: left hip septic arthritis Procedure: left hip irrigation and debridement Findings: left hip septic arthritis Inf/Abcess present in the surg proc area at time of surgery?: Yes Depth: Deep Incisional (Fascial) EBL: 50-100
--- NOTE | 2017-06-04 15:39 | SOAPPROG ---
SOAP Progress Note Assessment/Plan: Assessment: Pt is POD #0 from left hip irrigation and debridement. PE: Surgical dressing over the posterolateral hip NV intact LLE Abductor wedge in place. Plan: 1. Antibiotics per infectious disease 2. WBAT LLE. Posterior hip precautions 3. Abductor wedge to be in place when patient in bed 4. PT/OT 5. Reinforce dressing as needed 06/04/17 15:38 06/04/17 15:45 Objective: Vital Signs Temp Pulse Resp BP Pulse Ox 37.1 C 94 95 H 167/87 H 06/04/17 13:39 06/04/17 13:39 06/04/17 13:39 06/04/17 13:39 ICD10 Worksheet Patient Problems: Problems Problem Status Onset Bacteremia due to Staphylococcus Acute Left hip pain Acute Osteoarthritis Acute Primary osteoarthritis of left knee Acute
[2017-06-04] MEDS ORDERED: VANCOMYCIN HCL/NORMAL SALINE 250 ML IV ONE (15:50)
[2017-06-04] MEDS ORDERED: HYDROmorphONE/DILAUDID 1 MG/ML SYR ONE (15:51)
[2017-06-04] MEDS: fentaNYL 100 MCG/2 ML INJ IVP PRN ×2 (15:57→16:02)
[2017-06-04] MEDS: HYDROmorphONE/DILAUDID 1 MG/ML SYR IVP PRN ×3 (15:59→16:49)
[2017-06-04] MEDS ORDERED: LABETALOL HCL 5 MG/ML 20 ML MDV ONE (16:12)
[2017-06-04] MEDS: LABETALOL HCL 50 MG/10 ML SYR IVP PRN ×2 (16:14→16:39)
[2017-06-04] MEDS ORDERED: ALTEPLASE 2 MG VIAL IVP PRN (17:12)
[2017-06-04 17:28] LABS: ALANINE AMINOTRANSFERASE 102 IU/L (9-52); ALBUMIN 3.1 g/dL (3.5-5.0); ALKALINE PHOSPHATASE 183 IU/L (38-126); ANION GAP 14 mEq/L (8-16); ASPARTATE AMINOTRANSFERASE 75 IU/L (14-46); BILIRUBIN,TOTAL 0.6 mg/dL (0.1-1.4); CALCIUM 10.4 mg/dL (8.5-10.4); CARBON DIOXIDE 21 mEq/l (22-31); CHLORIDE 103 mEq/L (97-110); CREATININE 0.9 mg/dL (0.6-1.0); GLOMERULAR FILTRATION RATE 60; GLUCOSE 98 mg/dL (70-100); POTASSIUM 4.5 mEq/L (3.5-5.2); SODIUM 138 mEq/L (134-144); TOTAL PROTEIN 6.3 g/dL (6.3-8.2)
[2017-06-04] MEDS: ACETAMINOPHEN 325 MG TAB PO PRN (17:42)
[2017-06-04] MEDS: oxyCODONE IR 5 MG TAB PO PRN (17:42)
--- NOTE | 2017-06-04 18:37 | GCON ---
[f rep st] CONSULTATION Patient Name: ROSALBA HULL N-Number: [id number] Date of : 1935 Patient Status: Inpatient Attending Doctor: Polo Dahl MD Consulting Doctor: Alexis Luna MD Date of service: 06/04/17 CPT codes: CPT code 62852 ER visit requiring admission or initial inpatient visit, level three Modifier 57 decision for surgery CHIEF COMPLAINT: Left hip pain HISTORY OF PRESENT ILLNESS: This is a very pleasant 81 year old female with a significant history for left hip osteoarthritis with significantly increased pain in her left hip following a left hip injection on 05/11/17. Over the past few weeks, she has undergone a left hip aspiration (which demonstrated no growth), a left hip MRI (minimal effusion) and, most recently, blood cultures. All of her blood cultures were positive for gram positive cocci. In addition, the patient now has severe left hip pain and is unable to ambulate due to the pain. PROBLEM LIST: Left hip pain, positive blood cultures PAST MEDICAL HISTORY: Breast cancer in 1996, osteoporosis, bilateral hip OA SURGERIES: Bilateral mastectomy, left TKA in 2003 SOCIAL HISTORY: Noncontributory FAMILY HISTORY: Noncontributory CURRENT MEDICATIONS: Aspirin, Glucosamine/chondroitin, Ascorbic acid, Herbal supplement, Celecoxib, tramadol ALLERGIES: Midazolam, Penicillin REVIEW OF SYSTEMS Constitutional: No unexpected weight loss, weight gain, fevers, chills, or fatigue. Eyes: No blurred or double vision, no eye pain, redness or swelling. ENT: No headaches, difficulty swallowing, nose bleeds, tinnitus, or earaches. Cardiovascular: No chest pain, palpitations, fainting or murmurs. Respiratory: No shortness of breath, wheezing, cough, of difficulty breathing. GI: No reflux, no nausea or vomiting, no constipation, diarrhea, or bloody stools. Genitourinary: No urinary frequency or urgency, no pain with urination. Skin: No skin changes, rashes, itching, or redness. Neurologic: No unsteadiness of gait, no dizziness, tremors, or seizures. Psychiatric: No nervousness, anxiety, depression, or hallucinations. Hematologic: No increased bleeding or easy bruising. Endocrine: No excessive thirst or urination and no heat or cold intolerances. Allergic: No reactions to food or environment. Musculoskeletal: See history of present illness. PHYSICAL EXAM General: No apparent distress. Orientation: Alert and oriented times three Mood and affect: Calm, appropriate. Gait and station: ELMER Skin: Warm, dry. Lymph: Non tender neck, axillary and inguinal nodes. Chest: Equal expansion, no pain with deep breaths, speaks in coherent sentences. Cardiovascular: Regular pulse. Abdomen: Soft, non-tender, no masses, no palpable hernias. Bilateral hip examination Inspection/palpation: Right: Soft, non-tender. Left: Severe left groin pain with minimal passive ROM. Patient holds her left hip in a semi-flexed postures at baseline Range of motion Flexion: 100 / ELMER / 100 Extension: 30 / ELMER / 30 Strength (R / L / Normal) Muscle(s) Quadriceps (L3-L4): 5 / 3 / 5 Hamstrings (L4-L5): 5 / 3/ 5 Tibialis anterior (L4): 5 / 3 / 5 EHL (L5): 5 / 3 / 5 FHL (S1): 5 / 3 / 5 Gastroc-soleus (S1): 5 / 3 / 5 Sensory (R / L / Normal) Dermatomes L1 (groin): + / + / + L2 (medial upper thigh): + / + / + L3 (anterior thigh): + / + / + L4 (medial ankle): + / + / + L5 (first dorsal web space): + / + / + S1 (lateral border of foot): + / + / + Peripheral nerves Superficial peroneal: + / + / + Deep peroneal: + / + / + Sural: + / + / + Tibial: + / + / + Saphenous: + / + / + Vascular exam (R / L / Normal) Dorsal pedis: 2+ / 2+ / 2+ Tibialis posterior: 2+ / 2+ / 2+ Diagnoses New diagnosis: Left hip septic arthritis Work-up planned: yes: see assessment and plan Assessment and plan This is a 81 year old patient with signs and symptoms consistent with left hip septic arthritis -As such I have discussed with the patient the risks, benefits, alternatives, and complications associated with both non-operative (specifically, observation , antibiotics, repeat aspiration, repeat imaging study) and operative ( specifically, left hip irrigation and debridement) forms of treatment -The patient fully understands the risks, benefits, alternatives, and complications of both forms of treatment and the patient wishes to proceed with surgical intervention - She has signed the informed consent and will be taken to the OR at its earliest availability Time I have spent 80 minutes of [id number] time with the patient during this visit. Over fifty percent of this time was spent counseling the patient on the risks, benefits, alternatives, and complications of both non-operative and operative forms of treatment as outlined above. /[id number]/MODL MTDD
[2017-06-04] MEDS: SENNOSIDES/DOCUSATE SODIUM TAB PO SCH (21:43)
[2017-06-05] MEDS: oxyCODONE IR 5 MG TAB PO PRN ×6 (01:13→23:35)
[2017-06-05] MEDS: ACETAMINOPHEN 325 MG TAB PO PRN ×4 (01:13→23:35)
[2017-06-05 05:19] LABS: % IMMATURE GRANULYOCYTES 0.5 % (0.0-1.1); ABSOLUTE IMMATURE GRANULOCYTES 0.05 10^3/uL (0.00-0.10); ADD DIFF? NO; ADD MORPH? NO; ADD SCAN? NO; ATYPICAL LYMPHOCYTE FLAG 0 (0-99); FRAGMENT RBC FLAG 0 (0-99); HEMATOCRIT 27.8 % (38.0-47.0); HEMOGLOBIN 9.3 g/dL (12.6-16.3); LEFT SHIFT FLG 10 (0-99); LIPEMIA HEMOLYSIS FLAG 80 (0-99); MEAN CELL HEMOGLOBIN 30.2 pg (27.9-34.1); MEAN CELL HEMOGLOBIN CONCENTR. 33.5 g/dL (32.4-36.7); MEAN CELL VOLUME 90.3 fL (81.5-99.8); MEAN PLATELET VOLUME 9.1 fL (8.7-11.7); PLATELET CLUMPS FLAG 10 (0-99); PLATELET COUNT 591 10^3/uL (150-400); RED BLOOD CELL COUNT 3.08 10^6/uL (4.18-5.33); RED CELL DISTRIBUTION WIDTH 14.2 % (11.5-15.2)
[2017-06-05 05:35] LABS: ANION GAP 9 mEq/L (8-16); CALCIUM 9.2 mg/dL (8.5-10.4); CARBON DIOXIDE 22 mEq/l (22-31); CHLORIDE 106 mEq/L (97-110); CREATININE 0.8 mg/dL (0.6-1.0); GLOMERULAR FILTRATION RATE > 60; GLUCOSE 116 mg/dL (70-100); POTASSIUM 5.1 mEq/L (3.5-5.2); SODIUM 137 mEq/L (134-144)
--- NOTE | 2017-06-05 06:08 | GOP ---
[f rep st] OPERATIVE REPORT PATIENT: ROSALBA HULL DATE OF SERVICE: 06/04/17 PATIENT DATE OF : 1935 SURGEON: Alexis Luna M.D. SEAFOOD PREPARER: Yari Sahu PA-C Mrs. Lyons assistance was medically necessary for patient positioning and the retraction of vital structures. ANESTHESIA: General PRE-OPERATIVE DIAGNOSES: Left hip septic arthritis (ICD-10 code M00.852 left hip septic arthritis) POST-OPERATIVE DIAGNOSES: Left hip septic arthritis (ICD-10 code M00.852 left hip septic arthritis) OPERATIVE PROCEDURES: CPT code 37408 Left hip arthrotomy with irrigation and debridement CPT code 94007 Debridement of bone, first 20 square cm or less EBL: 75cc COMPLICATIONS: None IMPLANTS: None BRIEF CLINICAL NOTE: This is a very pleasant 81 old female with a significant history for increasing left hip pain after undergoing a left hip injection on 05/11/17. Following the injection, she has also undergone a left hip MRI, a left hip aspiration (no growth on culture) and blood cultures which were positive for bacterial growth. On clinical examination, the patient demonstrated multiple signs and symptoms consistent with a septic left hip joint. As such, I discussed the risks, benefits, alternatives, and complications associated with both non-operative (specifically, observation.) and operative (specifically, left hip arthrotomy with irrigation and debridement) forms of treatment. The patient fully understood the risks, benefits, alternatives, and complications associated with both forms of treatment and wished to proceed with operative intervention as outlined above. The patient has signed the informed consent form for surgery DESCRIPTION OF PROCEDURE: On the day of surgery, all the patient's questions were answered and the patient was transferred from the pre-operative holding area to the operating room where a formal Time out procedure was performed. The patient was identified by name, medical record number, social security number and date of . The patient's left lower extremity was identified as the correct extremity for surgery, with the left hip being identified as the correct portion of that extremity for the surgery. The anesthesia team then administered pre-operative antibiotics for prophylaxis. The patient was then placed into the lateral decubitus position with the operative side facing up. The lower extremity was then prepped and draped in the normal sterile fashion. A sterile marking pen was then utilized to mynor out a standard posterolateral hip incision in line with the posterior one-third of the greater trochanter of the femur. Following this, a #10 blade was then used to incise the skin. Meticulous hemostasis was obtained in the subcutaneous plane utilizing Bovie cautery. The incision was then carried down to the level of the IT band and the fascia overlying the gluteus memo. The IT band was then split longitudinally and this fascial incision was then carried in line with the fibers of the gluteus memo muscle more proximally. The [employer] retractor was then inserted underneath the level of the fascia only taking great care to protect the sciatic nerve. The femur was then internally rotated to put the short external rotators onto maximal stretch. The short external rotators were then released off of the posterior aspect of the greater trochanter. Next, the posterior hip capsule was incised with bovie cautery. Immediately upon incising the hip capsule a significant amount of purulent material was encountered. The purulent material was swab cultured and tissue cultures were also obtained. The entire joint was then sharply surgically debrided and copiously irrigated with sterile normal saline mixed with bacitracin and polymixin. Several #1 prolene sutures were then passed through the short external rotators. A 2.5-mm drill was then utilized to drill two holes through the posterior aspect of the greater trochanter. The sutures which had been passed through the short external rotators were then passed through the two drill holes and tied over a bone bridge along the posterolateral aspect of the greater trochanter. This provided for an excellent repair of the short external rotators. The wound was then once again copiously irrigated with sterile normal saline and the fascial plane was re-approximated with 0 Prolene sutures. Following this, the subcutaneous plane was re-approximated with buried interrupted 2-0 prolene sutures and the skin was closed with surgical sandor. The skin was cleaned with sterile normal saline and dried. Betadine soaked gauze was then applied to the incision followed by a dry sterile dressing and an Ioban occlusive dressing. Following this, the patient was then placed into an abduction wedge splint and was then transferred from the operating room table to the postoperative gurney and transferred from the operating room to the post-anesthesia care unit in stable condition. POSTOPERATIVE PLAN: The patient will remain in the abduction wedge anytime while in bed. The patient will be WBAT on the left lower extremity with posterior hip precautions. Therapy will begin tomorrow to encourage early mobilization following surgery. /[id number]/MODL MTDD
[2017-06-05] MEDS: SENNOSIDES/DOCUSATE SODIUM TAB PO SCH ×2 (08:55→20:18)
[2017-06-05] MEDS: ASCORBIC ACID 500 MG TAB PO SCH (09:00)
[2017-06-05] MEDS: GLUCOSAMINE/CHONDROITIN CAP PO SCH (09:00)
[2017-06-05] MEDS ORDERED: Herbals/Supplements -Info Only PO SCH (09:00)
[2017-06-05] MEDS: ASPIRIN 81 MG CHEWABLE TAB PO SCH (09:00)
[2017-06-05] MEDS ORDERED: IBUPROFEN 600 MG TAB PO PRN (09:33)
[2017-06-05] MEDS: VANCOMYCIN HCL/NORMAL SALINE 250 ML IV SCH (15:58)
--- NOTE | 2017-06-05 17:06 | HOSPPROG ---
Hospitalist Progress Note Assessment/Plan: Assessment: 81-year-old female presenting with bacteremia and suspected septic arthritis Plan: 1. Staph lugdunensis Bacteremia. Gram-positive cocci in clusters growing in 2/2 bottles from 06/02/2017, repeat Cx drawn - D#1 Vanco - appreciate ID consultation 2. Suspected septic arthritis. POD#1 wash-out by Dr. Luna, Cx sent from area - pain improving post-op - cont home dosing of oxy SR, IR PRN, ibuprofen p.r.n. - bowel regimen - IS - monitor hemoglobin level 3. Transaminitis. Acute, reviewed outside records demonstrated no evidence of preoperative transaminitis, continue to monitor Diet. Regular Prophylaxis. High risk patient, SCDs today and lovenox tomorrow 24hrs s/p surg Code. Full Disposition. Anticipated discharge uncertain this time, pending on post-surg recovery Subjective: patient reports adequate pain control Objective: Vital Signs Temp Pulse Resp BP Pulse Ox 36.8 C 90 16 141/72 H 91 L 06/05/17 16:00 06/05/17 16:00 06/05/17 16:00 06/05/17 16:00 06/05/17 16:00 Microbiology 06/04/17 14:25 Gram Stain - Final Hip - Tissue 06/04/17 14:25 Mycobacterial Smear (CHAYA) - Final Hip - Tissue 06/04/17 14:25 Gram Stain - Final Hip - Tissue 06/04/17 14:25 Mycobacterial Smear (CHAYA) - Final Hip - Tissue 06/04/17 14:25 Gram Stain - Final Hip - Eswab 06/04/17 14:25 Gram Stain - Final Hip - Eswab 06/04/17 14:25 Mycobacterial Smear (CHAYA) - Final Hip - Eswab Mycobacterial Culture - Final 06/04/17 14:25 Gram Stain - Final Hip - Eswab 06/04/17 14:25 Mycobacterial Smear (CHAYA) - Final Hip - Eswab Mycobacterial Culture - Final 06/04/17 14:25 Gram Stain - Final Hip - Eswab 06/04/17 14:25 Mycobacterial Smear (CHAYA) - Final Hip - Eswab Mycobacterial Culture - Final 06/04/17 14:25 Mycobacterial Smear (CHAYA) - Final Hip - Tissue Mycobacterial Culture - Final 06/04/17 14:25 Mycobacterial Smear (CHAYA) - Final Hip - Eswab Mycobacterial Culture - Final 06/04/17 14:25 Gram Stain - Final Hip - Tissue Laboratory Results 06/05/17 05:02 06/05/17 05:02 06/04/17 06/05/17 06/06/17 05:59 05:59 05:59 Intake Total 1250 Output Total 1275 Balance -25 - Physical Exam Constitutional: no apparent distress, appears nourished, not in pain Cardiovascular: regular rate and rhythym, no murmur, rub, or gallop Respiratory: no respiratory distress, no rales or rhonchi, clear to auscultation Gastrointestinal: normoactive bowel sounds, soft, non-tender abdomen, no palpable masses Skin: other ( no ecchymoses, no erythema around the surgical site, minimal tenderness, minimal soft tissue edema) Neurologic: AAOx3 Psychiatric: interacting appropriately, not anxious, not encephalopathic, thought process linear ICD10 Worksheet Patient Problems: Problems Problem Status Onset Bacteremia due to Staphylococcus Acute Left hip pain Acute Osteoarthritis Acute Primary osteoarthritis of left knee Acute
--- NOTE | 2017-06-05 19:22 | PCMIDPN ---
Assessment/Plan: Assessment/Plan: * Staph lugdunensis bacteremia/left hip septic arthritis status post incision and drainage: Blood cultures and hip cultures all growing Staphylococcus lugdunensis. Will continue vancomycin today. Favor trying to transition to cefazolin as isolate is beta-lactam susceptible. Reviewed penicillin allergy with patient which was urticaria and blisters after receiving penicillin while in high school. Suspect reasonable likelihood she will tolerate cefazolin. would prefer beta-lactam over vancomycin based on safety profile and efficacy. Repeat blood cultures are pending to assess for clearing of bacteremia. Will obtain transthoracic echocardiogram to assess for endocarditis. Above findings and plan were discussed with patient, , and son. 06/05/17 19:18 Subjective: Patient complains of left hip pain. Objective: Vital Signs Temp Pulse Resp BP Pulse Ox 36.8 C 90 16 141/72 H 91 L 06/05/17 16:00 06/05/17 16:00 06/05/17 16:00 06/05/17 16:00 06/05/17 16:00 Microbiology 06/04/17 14:25 Gram Stain - Final Hip - Tissue 06/04/17 14:25 Mycobacterial Smear (CHAYA) - Final Hip - Tissue Mycobacterial Culture - Final 06/04/17 14:25 Gram Stain - Final Hip - Tissue 06/04/17 14:25 Mycobacterial Smear (CHAYA) - Final Hip - Tissue 06/04/17 14:25 Gram Stain - Final Hip - Tissue 06/04/17 14:25 Mycobacterial Smear (CHAYA) - Final Hip - Tissue 06/04/17 14:25 Gram Stain - Final Hip - Eswab 06/04/17 14:25 Gram Stain - Final Hip - Eswab 06/04/17 14:25 Mycobacterial Smear (CHAYA) - Final Hip - Eswab Mycobacterial Culture - Final 06/04/17 14:25 Gram Stain - Final Hip - Eswab 06/04/17 14:25 Mycobacterial Smear (CHAYA) - Final Hip - Eswab Mycobacterial Culture - Final 06/04/17 14:25 Gram Stain - Final Hip - Eswab 06/04/17 14:25 Mycobacterial Smear (CHAYA) - Final Hip - Eswab Mycobacterial Culture - Final 06/04/17 14:25 Mycobacterial Smear (CHAYA) - Final Hip - Eswab Mycobacterial Culture - Final Laboratory Results 06/05/17 05:02 06/05/17 05:02 06/04/17 06/05/17 06/06/17 05:59 05:59 05:59 Intake Total 1250 800 Output Total 1275 Balance -25 800 Vancomycin # 2 Blood and hip cultures with growth of Staphylococcus lugdunensis Blood cultures 06/05/2017 pending - Physical Exam General Appearance: alert, non-toxic EENT: No conjunctival petechiae Respiratory: lungs clear, No respiratory distress Cardiac/Chest: regular rate, rhythm, systolic murmur ( 2/6 left upper sternal border) Abdomen: non-tender, No distended Skin: No embolic lesions ICD10 Worksheet Patient Problems: Problems Problem Status Onset Bacteremia due to Staphylococcus Acute Left hip pain Acute Osteoarthritis Acute Primary osteoarthritis of left knee Acute
[2017-06-06] MEDS: oxyCODONE IR 5 MG TAB PO PRN (03:57)
--- NOTE | 2017-06-06 08:13 | SOAPPROG ---
SOAP Progress Note Assessment/Plan: Assessment: Pt is POD #1 from left hip irrigation and debridement. She reports the pain has improved. PE: Surgical dressing over the posterolateral hip NV intact LLE Abductor wedge in place. Plan: 1. Antibiotics per infectious disease 2. WBAT LLE. Posterior hip precautions 3. Abductor wedge to be in place when patient in bed 4. PT/OT 5. Reinforce dressing as needed. Dressing will be changed tomorrow 06/04/17 15:38 06/04/17 15:45 06/06/17 08:13 Objective: Vital Signs Temp Pulse Resp BP Pulse Ox 36.9 C 95 16 132/59 H 89 L 06/05/17 23:07 06/05/17 23:07 06/05/17 23:07 06/05/17 23:07 06/05/17 23:07 Microbiology 06/04/17 14:25 Gram Stain - Final Hip - Tissue 06/04/17 14:25 Mycobacterial Smear (CHAYA) - Final Hip - Tissue Mycobacterial Culture - Final 06/04/17 14:25 Gram Stain - Final Hip - Tissue 06/04/17 14:25 Mycobacterial Smear (CHAYA) - Final Hip - Tissue 06/04/17 14:25 Gram Stain - Final Hip - Tissue 06/04/17 14:25 Mycobacterial Smear (CHAYA) - Final Hip - Tissue 06/04/17 14:25 Gram Stain - Final Hip - Eswab 06/04/17 14:25 Gram Stain - Final Hip - Eswab 06/04/17 14:25 Mycobacterial Smear (CHAYA) - Final Hip - Eswab Mycobacterial Culture - Final 06/04/17 14:25 Gram Stain - Final Hip - Eswab 06/04/17 14:25 Mycobacterial Smear (CHAYA) - Final Hip - Eswab Mycobacterial Culture - Final 06/04/17 14:25 Gram Stain - Final Hip - Eswab 06/04/17 14:25 Mycobacterial Smear (CHAYA) - Final Hip - Eswab Mycobacterial Culture - Final 06/04/17 14:25 Mycobacterial Smear (CHAYA) - Final Hip - Eswab Mycobacterial Culture - Final Laboratory Results 06/05/17 05:02 06/05/17 05:02 06/05/17 06/06/17 06/07/17 05:59 05:59 05:59 Intake Total 1250 1000 Output Total 1275 150 150 Balance -25 850 -150 ICD10 Worksheet Patient Problems: Problems Problem Status Onset Bacteremia due to Staphylococcus Acute Left hip pain Acute Osteoarthritis Acute Primary osteoarthritis of left knee Acute
[2017-06-06] MEDS: ASPIRIN 81 MG CHEWABLE TAB PO SCH (08:21)
[2017-06-06] MEDS: GLUCOSAMINE/CHONDROITIN CAP PO SCH (08:21)
[2017-06-06] MEDS: SENNOSIDES/DOCUSATE SODIUM TAB PO SCH ×3 (08:22→20:56)
[2017-06-06] MEDS: ENOXAPARIN 40 MG/0.4 ML SYR SC SCH (08:22)
[2017-06-06] MEDS: ASCORBIC ACID 500 MG TAB PO SCH (08:22)
[2017-06-06 08:33] LABS: % IMMATURE GRANULYOCYTES 0.5 % (0.0-1.1); ABSOLUTE IMMATURE GRANULOCYTES 0.05 10^3/uL (0.00-0.10); ADD DIFF? NO; ADD MORPH? NO; ADD SCAN? NO; ATYPICAL LYMPHOCYTE FLAG 10 (0-99); FRAGMENT RBC FLAG 0 (0-99); HEMATOCRIT 31.5 % (38.0-47.0); HEMOGLOBIN 10.3 g/dL (12.6-16.3); LEFT SHIFT FLG 0 (0-99); LIPEMIA HEMOLYSIS FLAG 80 (0-99); MEAN CELL HEMOGLOBIN CONCENTR. 32.7 g/dL (32.4-36.7); MEAN CELL VOLUME 91.8 fL (81.5-99.8); PLATELET CLUMPS FLAG 0 (0-99); PLATELET COUNT 639 10^3/uL (150-400); RED BLOOD CELL COUNT 3.43 10^6/uL (4.18-5.33); RED CELL DISTRIBUTION WIDTH 14.5 % (11.5-15.2)
[2017-06-06 09:04] LABS: ALANINE AMINOTRANSFERASE 62 IU/L (9-52); ALKALINE PHOSPHATASE 129 IU/L (38-126); ANION GAP 10 mEq/L (8-16); ASPARTATE AMINOTRANSFERASE 39 IU/L (14-46); BILIRUBIN,TOTAL 0.6 mg/dL (0.1-1.4); CALCIUM 9.6 mg/dL (8.5-10.4); CARBON DIOXIDE 23 mEq/l (22-31); CHLORIDE 104 mEq/L (97-110); CREATININE 0.8 mg/dL (0.6-1.0); GLOMERULAR FILTRATION RATE > 60; GLUCOSE 92 mg/dL (70-100); POTASSIUM 4.7 mEq/L (3.5-5.2); SODIUM 137 mEq/L (134-144); TOTAL PROTEIN 5.9 g/dL (6.3-8.2)
[2017-06-06] MEDS ORDERED: oxyCODONE IR 5 MG TAB PO PRN (09:19)
--- NOTE | 2017-06-06 09:19 | PCMIDPN ---
Assessment/Plan: Assessment/Plan: 1. Staph lugdenesis bacteremia with left septic hip arthritis: - s/p wash out on on 06/04/17 with all cx showing STaph lugdenesis. - Blood cx from 06/02 positive. f/u blood cx from 06/05/17 so far ngtd at 24 hours. -TTE ordered already--pending study. - If blood cx remain negative at 48 hours, plan for picc line. Briefly discussed with patient today. -Continue Vanco today. Given having some disoriented feelings with some difficulties communicating thoughts from her pain meds, will hold off on changing her Vanco to Ancef today. Discussed this with her today. - Care coordinated with Dr. Valle and RN today Meds VAnco 1g daily- Subjective: afebrile. sitting up in chair. Struggling with feeling like she doesn't have control over her situation, thoughts, and having decreased concentration today. Denies sob, abd pain. Having loose stools, she reports abbout 3x/day. Having moderate pain involvign left hip especially when puts pressure on it. Objective: Vital Signs Temp Pulse Resp BP Pulse Ox 37.3 C 104 H 16 128/61 H 90 L 06/06/17 08:00 06/06/17 08:00 06/06/17 08:00 06/06/17 08:00 06/06/17 08:00 Microbiology 06/04/17 14:25 Gram Stain - Final Hip - Tissue 06/04/17 14:25 Mycobacterial Smear (CHAYA) - Final Hip - Tissue Mycobacterial Culture - Final 06/04/17 14:25 Gram Stain - Final Hip - Tissue 06/04/17 14:25 Mycobacterial Smear (CHAYA) - Final Hip - Tissue 06/04/17 14:25 Gram Stain - Final Hip - Tissue 06/04/17 14:25 Mycobacterial Smear (CHAYA) - Final Hip - Tissue 06/04/17 14:25 Gram Stain - Final Hip - Eswab 06/04/17 14:25 Gram Stain - Final Hip - Eswab 06/04/17 14:25 Mycobacterial Smear (CHAYA) - Final Hip - Eswab Mycobacterial Culture - Final 06/04/17 14:25 Gram Stain - Final Hip - Eswab 06/04/17 14:25 Mycobacterial Smear (CHAYA) - Final Hip - Eswab Mycobacterial Culture - Final 06/04/17 14:25 Gram Stain - Final Hip - Eswab 06/04/17 14:25 Mycobacterial Smear (CHAYA) - Final Hip - Eswab Mycobacterial Culture - Final 06/04/17 14:25 Mycobacterial Smear (CHAYA) - Final Hip - Eswab Mycobacterial Culture - Final Laboratory Results 06/06/17 08:25 06/06/17 08:25 06/05/17 06/06/17 06/07/17 05:59 05:59 05:59 Intake Total 1250 1000 Output Total 1275 150 150 Balance -25 850 -150 - Physical Exam General Appearance: alert, no apparent distress, other (slow speech.) Respiratory: lungs clear Cardiac/Chest: regular rate, rhythm Extremities: No swelling Abdomen: normal bowel sounds, non-tender, soft, No distended Skin: other (left hip with dressing overlying. tender when palpating around it. ), No erythema ICD10 Worksheet Patient Problems: Problems Problem Status Onset Bacteremia due to Staphylococcus Acute Left hip pain Acute Osteoarthritis Acute Primary osteoarthritis of left knee Acute
[2017-06-06] MEDS ORDERED: ACETAMINOPHEN 325 MG TAB PO SCH (09:41)
[2017-06-06] MEDS: ACETAMINOPHEN 500 MG TAB PO SCH ×3 (10:55→20:55)
[2017-06-06] MEDS: KETOROLAC 15 MG/1 ML SDV IVP PRN ×3 (10:56→20:55)
[2017-06-06] MEDS: CYCLOBENZAPRINE 10 MG TAB PO PRN ×2 (10:56→20:55)
--- NOTE | 2017-06-06 12:05 | ECHO ---
[id number] + + [address] : : [place] [address] : : [phone] + + Adult Echocardiographic Report + ----+ :Name: ROSALBA HULL MStudy Date: 06/06/2017 10:56 AM BP: 128/61 mmHg : : Hospital Admission Number: [id number] Location: 340: :: 1935 Gender: Female Height: 63 in : :Age: 81 yrs Race: WH,PTD Weight: 150 lb : :Reason For Study: assess for endocarditis : : BSA: 1.7 meters2 : :History: bacteremia, septic arthritis : + ----+ MMode/2D Measurements \T\ Calculations IVSd: 0.93 cm RVDd: 2.8 cm FS: 30.6 % LVLd ap4: 7.3 cm LVPWd: 0.86 cm LVIDd: 3.7 cmEDV(Teich): 56.3 ml EDV(MOD-sp4): 87.0 ml LVIDs: 2.5 cmESV(Teich): 23.1 ml LVLs ap4: 6.3 cm EF(Teich): 59.0 % ESV(MOD-sp4): 30.0 ml EF(MOD-sp4): 65.5 % SV(MOD-sp4): 57.0 ml Normal Measurement Values: + + :LVIDd (3.5-5.7cm) IVSd (0.6-1.1cm) LVPWd (0.6-1.1cm) Aortic Root (2.0-3.7cm)Left Atrium (1.5-4.0cm): :LV Vol(d) (76-115ml) LV Vol(s) (29-48ml) Ejec Fraction (50-65%)PV Geoff (0.6- 1.2m/s) TV Geoff (0.4-1.0m/s) : :MV E Geoff (0.8-1.0m/s)MV A Geoff (0.3-1.0m/s)LVOT Geoff (0.7-1.2m/s) Asc Ao Geoff ( 0.9-1.8m/s) : + + Doppler Measurements \T\ Calculations MV E max geoff: Ao V2 max: LV V1 max: PA V2 max: 66.1 cm/sec 114.4 cm/sec 113.0 cm/sec 96.4 cm/sec MV A max geoff: Ao max P.2 mmHgLV V1 max PG: PA max P.4 cm/sec 5.1 mmHg 3.7 mmHg MV E/A: 0.81 MV dec time: 0.20 sec Left Ventricle The left ventricle is normal in size and function. There is normal left ventricular wall thickness. Ejection Fraction = 65%. There is Doppler evidence for diastolic dysfunction. No regional wall motion abnormalities noted. Right Ventricle The right ventricle is normal in size and function. Atria The left atrial size is normal. Right atrial size is normal. The interatrial septum is intact with no evidence for an atrial septal defect. Mitral Valve The mitral valve is normal in structure and function. There is no vegetation seen on the mitral valve. There is no mitral valve stenosis. There is trace mitral regurgitation. Tricuspid Valve The tricuspid valve is normal in structure and function. There is no tricuspid valve vegetation. There is no tricuspid stenosis. There is trace tricuspid regurgitation. Aortic Valve The aortic valve is trileaflet. Non-coronary cusp is sclerotic. Cannot exclude aortic valvular vegetation. There is no aortic stenosis. Mild aortic regurgitation. Pulmonic Valve The pulmonic valve is not well visualized. There is no pulmonic valvular stenosis. There is no pulmonic valvular regurgitation. Great Vessels The aortic root is normal size. Pericardium/Pleural There is no pericardial effusion. There is no pleural effusion. Conclusion A two-dimensional transthoracic echocardiogram with M-mode and Doppler was performed. Technically difficult apical window. Cannot rule out vegetation on the aortic valve. Would consider a transesophageal echocardiogram if clinically indicated. The left ventricle is normal in size and function. Ejection Fraction = 65%. Would consider a transesophageal echocardiogram if clinically indicated. There is trace mitral regurgitation. There is trace tricuspid regurgitation. Non-coronary cusp is sclerotic. Cannot exclude aortic valvular vegetation. Mild aortic regurgitation. There is Doppler evidence for diastolic dysfunction. There is no pleural effusion. Final Reading Physician: Isaias Echols electronically signed on 06/06/2017 12:04 PM Ordering Physician: Colton Gallego Performed By: Bernie Sullivan
[2017-06-06] MEDS ORDERED: ALTEPLASE 2 MG VIAL IVP PRN (13:46)
--- NOTE | 2017-06-06 15:16 | HOSPPROG ---
Hospitalist Progress Note Assessment/Plan: Assessment: 81-year-old female presenting with Staph lugdunensis bacteremia and septic arthritis, c/b acute encephalopathy Plan: 1. Staph lugdunensis Bacteremia. 2/2 bottles from 06/02/2017, repeat Cx drawn - sensitivity available today (hogue-sensitive), plan to adjust to Ancef tomorrow if mental status clearing - D#2 Vanco - appreciate ID consultation, getting Echo to eval for endocarditis 2. Septic arthritis. POD#2 wash-out by Dr. Luna, Cx sent from area w/ same organism as in blood, definite source - pain persisting today despite high doses of oral oxy IR + SR - d/w RN, plan to place on scheduled tylenol, PRN toradol/ibuprofen, reduced range of oxy IR (2.5-10), add PRN flexeril, and discontinue oxy SR - bowel regimen - IS - monitor hemoglobin level 3. Transaminitis. Acute, reviewed outside records demonstrated no evidence of preoperative transaminitis, continue to monitor 4. Acute encephalopathy. Evidenced by global brain dysfunction characterized as "out-of-body feeling", impaired concentration, poor writing/motor skills, and difficulty processing information, all of which is an acute change from yesterday, 2/2 toxic effects of oxycodone SR+IR - DC oxy SR, other med adjustments as above - gauge effect, raises patient's possibility of post-op morbidity, as she is less capable of engaging in PT Diet. Regular Prophylaxis. High risk patient, lovenox 40 Code. Full Disposition. Anticipated discharge uncertain this time, pending on post-surg recovery and cognitive improvement Subjective: counseled patient regarding mental status changes, med strategy, antibiotic strategy w/ Dr. Treadwell present, patient attempting to write instructions with significant difficulty Objective: Vital Signs Temp Pulse Resp BP Pulse Ox 37.3 C 104 H 16 128/61 H 90 L 06/06/17 08:00 06/06/17 08:00 06/06/17 08:00 06/06/17 08:00 06/06/17 08:00 Microbiology 06/04/17 14:25 Gram Stain - Final Hip - Eswab 06/04/17 14:25 Gram Stain - Final Hip - Tissue 06/04/17 14:25 Gram Stain - Final Hip - Tissue 06/04/17 14:25 Gram Stain - Final Hip - Tissue 06/04/17 14:25 Gram Stain - Final Hip - Eswab 06/04/17 14:25 Gram Stain - Final Hip - Eswab 06/04/17 14:25 Gram Stain - Final Hip - Eswab 06/04/17 14:25 Mycobacterial Smear (CHAYA) - Final Hip - Tissue 06/04/17 14:25 Mycobacterial Smear (CHAYA) - Final Hip - Tissue 06/04/17 14:25 Mycobacterial Smear (CHAYA) - Final Hip - Tissue Mycobacterial Culture - Final 06/04/17 14:25 Mycobacterial Smear (CHAYA) - Final Hip - Eswab Mycobacterial Culture - Final 06/04/17 14:25 Mycobacterial Smear (CHAYA) - Final Hip - Eswab Mycobacterial Culture - Final 06/04/17 14:25 Mycobacterial Smear (CHAYA) - Final Hip - Eswab Mycobacterial Culture - Final 06/04/17 14:25 Mycobacterial Smear (CHAYA) - Final Hip - Eswab Mycobacterial Culture - Final Laboratory Results 06/06/17 08:25 06/06/17 08:25 06/05/17 06/06/17 06/07/17 05:59 05:59 05:59 Intake Total 1250 1000 Output Total 1275 150 375 Balance -25 850 -375 - Time Spent With Patient Time Spent with Patient: greater than 35 minutes Time Spent with Patient: Greater than 35 minutes spent on this patients care, greater than 50% of time spent counseling, educating, and coordinating care regarding the above mentioned plan. - Physical Exam Constitutional: uncomfortable, No not in pain (L hip) Cardiovascular: regular rate and rhythym, no murmur, rub, or gallop, No edema Respiratory: no respiratory distress, no rales or rhonchi, clear to auscultation Gastrointestinal: normoactive bowel sounds, soft, non-tender abdomen, no palpable masses Skin: other (soft tissue edema, no erythema, no ecchymoses, tenderness around L hip) Musculoskeletal: other (painful flexion L hip) Neurologic: AAOx3, sensation intact bilaterally, weakness (motor 2-3/5 LLE), No facial droop Psychiatric: encephalopathic, anxious, flat affect (and worried affect), No agitated ICD10 Worksheet Patient Problems: Problems Problem Status Onset Bacteremia due to Staphylococcus Acute Primary osteoarthritis of left knee Acute Left hip pain Acute Osteoarthritis Acute
[2017-06-06] MEDS: VANCOMYCIN HCL/NORMAL SALINE 250 ML IV SCH (17:41)
[2017-06-07] MEDS: CYCLOBENZAPRINE 10 MG TAB PO PRN ×3 (05:35→23:18)
[2017-06-07] MEDS: KETOROLAC 15 MG/1 ML SDV IVP PRN ×3 (05:35→20:58)
--- NOTE | 2017-06-07 07:25 | SOAPPROG ---
SOAP Progress Note Assessment/Plan: Assessment: Pt is POD #2 from left hip irrigation and debridement. She reports the pain has improved. PE: Surgical dressing over the posterolateral hip NV intact LLE Plan: 1. Antibiotics per infectious disease 2. WBAT LLE. Posterior hip precautions 3. Abductor wedge to be in place when patient in bed 4. PT/OT 5. Dressing changed today. Keep dressing clean and dry. Reinforce if needed 06/06/17 19:00 Objective: Vital Signs Temp Pulse Resp BP Pulse Ox 37.0 C 75 16 124/59 H 97 06/06/17 23:05 06/06/17 23:05 06/06/17 23:05 06/06/17 23:05 06/06/17 23:05 Microbiology 06/04/17 14:25 Gram Stain - Final Hip - Eswab 06/04/17 14:25 Mycobacterial Smear (CHAYA) - Final Hip - Eswab Mycobacterial Culture - Final 06/04/17 14:25 Gram Stain - Final Hip - Eswab 06/04/17 14:25 Gram Stain - Final Hip - Tissue 06/04/17 14:25 Gram Stain - Final Hip - Tissue 06/04/17 14:25 Gram Stain - Final Hip - Tissue 06/04/17 14:25 Gram Stain - Final Hip - Eswab 06/04/17 14:25 Gram Stain - Final Hip - Eswab 06/04/17 14:25 Mycobacterial Smear (CHAYA) - Final Hip - Tissue 06/04/17 14:25 Mycobacterial Smear (CHAYA) - Final Hip - Tissue Laboratory Results 06/06/17 08:25 06/06/17 08:25 06/06/17 06/07/17 06/08/17 05:59 05:59 05:59 Intake Total 1000 1300 Output Total 150 375 Balance 850 925 ICD10 Worksheet Patient Problems: Problems Problem Status Onset Bacteremia due to Staphylococcus Acute Left hip pain Acute Osteoarthritis Acute Primary osteoarthritis of left knee Acute
[2017-06-07] MEDS: ENOXAPARIN 40 MG/0.4 ML SYR SC SCH (08:09)
[2017-06-07] MEDS: ASPIRIN 81 MG CHEWABLE TAB PO SCH (08:10)
[2017-06-07] MEDS: ASCORBIC ACID 500 MG TAB PO SCH (08:10)
[2017-06-07] MEDS: GLUCOSAMINE/CHONDROITIN CAP PO SCH (08:10)
[2017-06-07] MEDS: ACETAMINOPHEN 500 MG TAB PO SCH ×3 (08:10→20:59)
[2017-06-07] MEDS: SENNOSIDES/DOCUSATE SODIUM TAB PO SCH ×2 (08:10→20:59)
[2017-06-07 08:37] LABS: % IMMATURE GRANULYOCYTES 0.5 % (0.0-1.1); ABSOLUTE IMMATURE GRANULOCYTES 0.04 10^3/uL (0.00-0.10); ADD DIFF? NO; ADD MORPH? NO; ADD SCAN? NO; ATYPICAL LYMPHOCYTE FLAG 10 (0-99); FRAGMENT RBC FLAG 0 (0-99); HEMATOCRIT 27.3 % (38.0-47.0); LEFT SHIFT FLG 0 (0-99); LIPEMIA HEMOLYSIS FLAG 80 (0-99); MEAN CELL HEMOGLOBIN 30.1 pg (27.9-34.1); MEAN CELL VOLUME 91.3 fL (81.5-99.8); PLATELET CLUMPS FLAG 0 (0-99); PLATELET COUNT 524 10^3/uL (150-400); RED BLOOD CELL COUNT 2.99 10^6/uL (4.18-5.33); RED CELL DISTRIBUTION WIDTH 14.3 % (11.5-15.2)
[2017-06-07 08:59] LABS: ALANINE AMINOTRANSFERASE 58 IU/L (9-52); ALBUMIN 2.4 g/dL (3.5-5.0); ALKALINE PHOSPHATASE 110 IU/L (38-126); ANION GAP 6 mEq/L (8-16); ASPARTATE AMINOTRANSFERASE 42 IU/L (14-46); BILIRUBIN,TOTAL 0.4 mg/dL (0.1-1.4); CALCIUM 9.2 mg/dL (8.5-10.4); CARBON DIOXIDE 23 mEq/l (22-31); CHLORIDE 103 mEq/L (97-110); CREATININE 0.9 mg/dL (0.6-1.0); GLOMERULAR FILTRATION RATE 60; GLUCOSE 87 mg/dL (70-100); POTASSIUM 4.6 mEq/L (3.5-5.2); SODIUM 132 mEq/L (134-144); TOTAL PROTEIN 5.2 g/dL (6.3-8.2)
[2017-06-07] MEDS ORDERED: ALTEPLASE 2 MG VIAL IVP PRN (10:05)
--- NOTE | 2017-06-07 11:14 | PCMIDPN ---
Assessment/Plan: Assessment/Plan: * Staph lugdunensis bacteremia/left hip septic arthritis status post incision and drainage: Blood cultures and hip cultures all growing Staphylococcus lugdunensis. Blood cultures from 06/04/2017 are no growth. Will proceed with PICC line placement today. 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 Will review transthoracic echocardiogram findings with Dr. Echosl. If no significant valvular dysfunction, likely can repeat transthoracic echocardiogram over time to ensure no worsening rather than proceeding with a CHARLES if TTE not suggestive of surgical valvular disease. Discussed with patient and changing vancomycin to cefazolin. Patient with prior history of penicillin allergy in high school described as urticaria and blisters. Given remote nature of this allergy, suspect reasonable likelihood will tolerate cefazolin which is preferred for treatment of staphylococcal infections over vancomycin and provides more ideal therapeutic index given risk of nephrotoxicity with vancomycin. Time spent, 40 minutes, of which greater than half was spent in education/ counseling/coordination of care related to bacteremia and septic arthritis as well as plan of care including PICC line and changing vancomycin to cefazolin. Long-term plan of care including need for 6 weeks of IV antibiotics also reviewed. 06/07/17 11:11 06/07/17 11:15 Subjective: Patient with decreased left hip pain. Sitting up in chair. Objective: Vital Signs Temp Pulse Resp BP Pulse Ox 36.8 C 82 16 145/67 H 92 06/07/17 07:30 06/07/17 07:30 06/07/17 07:30 06/07/17 07:30 06/07/17 07:30 Microbiology 06/04/17 14:25 Gram Stain - Final Hip - Eswab 06/04/17 14:25 Gram Stain - Final Hip - Eswab 06/04/17 14:25 Mycobacterial Smear (CHAYA) - Final Hip - Eswab Mycobacterial Culture - Final 06/04/17 14:25 Gram Stain - Final Hip - Tissue 06/04/17 14:25 Gram Stain - Final Hip - Tissue 06/04/17 14:25 Gram Stain - Final Hip - Tissue 06/04/17 14:25 Gram Stain - Final Hip - Eswab 06/04/17 14:25 Gram Stain - Final Hip - Eswab 06/04/17 14:25 Mycobacterial Smear (CHAYA) - Final Hip - Tissue 06/04/17 14:25 Mycobacterial Smear (CHAYA) - Final Hip - Tissue Laboratory Results 06/07/17 08:26 06/07/17 08:26 06/06/17 06/07/17 06/08/17 05:59 05:59 05:59 Intake Total 1000 1300 Output Total 150 375 75 Balance 850 925 -75 Vancomycin # 4 Blood cultures 06/04/2017 no growth Transthoracic echocardiogram with questionable vegetation on aortic valve but no significant aortic valve dysfunction - Physical Exam General Appearance: alert, no apparent distress EENT: pharynx normal, No scleral icterus, No conjunctival petechiae Respiratory: lungs clear, No respiratory distress Cardiac/Chest: regular rate, rhythm, systolic murmur (2/6 left upper sternal border) Extremities: other (Decreased tenderness anterior hip/groin on left) Abdomen: non-tender, No distended Skin: No embolic lesions ICD10 Worksheet Patient Problems: Problems Problem Status Onset Bacteremia due to Staphylococcus Acute Left hip pain Acute Osteoarthritis Acute Primary osteoarthritis of left knee Acute
[2017-06-07] MEDS ORDERED: ceFAZolin 2 GM/DEXTROSE 100 ML IV SCH (12:00)
--- NOTE | 2017-06-07 13:42 | HOSPPROG ---
Hospitalist Progress Note Assessment/Plan: patient is an 81 y/o female who presented to the ER with left hip pain. She had received steroid injections for ongoing osteoarthritic pain. It was noted that she had Staph lugdunensis bacteremia and septic arthritis. She is s/p I & D of the left hip. Today is my first encounter with the patient/ chart reviewed. * Staph lugdunensis Bacteremia vancomycin/ trial of Ancef today (PCN allergy) PICC to be placed reviewed echo/ ? if she needs a CHARLES *septic arthritis/left hip WBAT *Pain scheduled Tylenol, Flexeril, Toradol will need close watching of renal fx with the Toradol *acute encephalopathy resolved with discontinuing pain medications *Transaminitis LFT's have trended down *hyponatremia follow *anemia will follow *dvt prophylaxis: LMWH Subjective: Yehuda said her pain is well controlled today. Has no specific complaints Objective: Vital Signs Temp Pulse Resp BP Pulse Ox 36.8 C 82 16 145/67 H 92 06/07/17 07:30 06/07/17 07:30 06/07/17 07:30 06/07/17 07:30 06/07/17 07:30 Microbiology 06/04/17 14:25 Gram Stain - Final Hip - Eswab 06/04/17 14:25 Gram Stain - Final Hip - Eswab 06/04/17 14:25 Gram Stain - Final Hip - Eswab 06/04/17 14:25 Mycobacterial Smear (CHAYA) - Final Hip - Eswab Mycobacterial Culture - Final 06/04/17 14:25 Gram Stain - Final Hip - Tissue 06/04/17 14:25 Gram Stain - Final Hip - Tissue 06/04/17 14:25 Gram Stain - Final Hip - Tissue 06/04/17 14:25 Gram Stain - Final Hip - Eswab 06/04/17 14:25 Mycobacterial Smear (CHAYA) - Final Hip - Tissue 06/04/17 14:25 Mycobacterial Smear (CHAYA) - Final Hip - Tissue Laboratory Results 06/07/17 08:26 06/07/17 08:26 06/06/17 06/07/17 06/08/17 05:59 05:59 05:59 Intake Total 1000 1300 Output Total 150 375 75 Balance 850 925 -75 - Physical Exam Constitutional: no apparent distress, appears nourished, not in pain Eyes: PERRL Ears, Nose, Mouth, Throat: hearing normal Cardiovascular: regular rate and rhythym Respiratory: no respiratory distress Gastrointestinal: normoactive bowel sounds Skin: warm, No normal color (pale) Neurologic: AAOx3 Psychiatric: interacting appropriately, not anxious ICD10 Worksheet Patient Problems: Problems Problem Status Onset Bacteremia due to Staphylococcus Acute Left hip pain Acute Osteoarthritis Acute Primary osteoarthritis of left knee Acute
--- NOTE | 2017-06-07 17:31 | SOAPPROG ---
SOAP Progress Note Assessment/Plan: Assessment: Pt is POD #3 from left hip irrigation and debridement. She reports the pain has improved significantly PE: Surgical dressing over the posterolateral hip NV intact LLE Minimal pain with gentle ROM left hip Plan: 1. Antibiotics per infectious disease 2. WBAT LLE. Posterior hip precautions 3. Abductor wedge to be in place when patient in bed 4. PT/OT 5. Keep dressing clean and dry. Reinforce if needed 06/07/17 17:30 Objective: Vital Signs Temp Pulse Resp BP Pulse Ox 37.4 C 82 16 140/55 H 94 06/07/17 16:00 06/07/17 16:00 06/07/17 16:00 06/07/17 16:00 06/07/17 16:00 Microbiology 06/04/17 14:25 Gram Stain - Final Hip - Eswab 06/04/17 14:25 Gram Stain - Final Hip - Tissue 06/04/17 14:25 Gram Stain - Final Hip - Tissue 06/04/17 14:25 Gram Stain - Final Hip - Tissue 06/04/17 14:25 Gram Stain - Final Hip - Eswab 06/04/17 14:25 Gram Stain - Final Hip - Eswab 06/04/17 14:25 Gram Stain - Final Hip - Eswab 06/04/17 14:25 Mycobacterial Smear (CHAYA) - Final Hip - Eswab Mycobacterial Culture - Final 06/04/17 14:25 Mycobacterial Smear (CHAYA) - Final Hip - Tissue 06/04/17 14:25 Mycobacterial Smear (CHAYA) - Final Hip - Tissue Laboratory Results 06/07/17 08:26 06/07/17 08:26 06/06/17 06/07/17 06/08/17 05:59 05:59 05:59 Intake Total 1000 1300 Output Total 150 375 75 Balance 850 925 -75 ICD10 Worksheet Patient Problems: Problems Problem Status Onset Bacteremia due to Staphylococcus Acute Left hip pain Acute Osteoarthritis Acute Primary osteoarthritis of left knee Acute
[2017-06-07] MEDS: ceFAZolin 2 GM/DEXTROSE 100 ML IV SCH (23:22)
[2017-06-08 05:23] LABS: % IMMATURE GRANULYOCYTES 0.9 % (0.0-1.1); ABSOLUTE IMMATURE GRANULOCYTES 0.07 10^3/uL (0.00-0.10); ADD DIFF? NO; ADD MORPH? NO; ADD SCAN? NO; ATYPICAL LYMPHOCYTE FLAG 10 (0-99); FRAGMENT RBC FLAG 0 (0-99); HEMOGLOBIN 8.7 g/dL (12.6-16.3); LEFT SHIFT FLG 0 (0-99); LIPEMIA HEMOLYSIS FLAG 80 (0-99); MEAN CELL HEMOGLOBIN 30.2 pg (27.9-34.1); MEAN CELL HEMOGLOBIN CONCENTR. 33.5 g/dL (32.4-36.7); MEAN CELL VOLUME 90.3 fL (81.5-99.8); MEAN PLATELET VOLUME 8.9 fL (8.7-11.7); PLATELET CLUMPS FLAG 0 (0-99); PLATELET COUNT 506 10^3/uL (150-400); RED BLOOD CELL COUNT 2.88 10^6/uL (4.18-5.33)
[2017-06-08 05:37] LABS: ALANINE AMINOTRANSFERASE 56 IU/L (9-52); ALBUMIN 2.2 g/dL (3.5-5.0); ALKALINE PHOSPHATASE 110 IU/L (38-126); ANION GAP 4 mEq/L (8-16); ASPARTATE AMINOTRANSFERASE 45 IU/L (14-46); BILIRUBIN,TOTAL 0.3 mg/dL (0.1-1.4); CALCIUM 8.7 mg/dL (8.5-10.4); CARBON DIOXIDE 25 mEq/l (22-31); CHLORIDE 102 mEq/L (97-110); CREATININE 0.8 mg/dL (0.6-1.0); GLOMERULAR FILTRATION RATE > 60; GLUCOSE 91 mg/dL (70-100); POTASSIUM 4.4 mEq/L (3.5-5.2); SODIUM 131 mEq/L (134-144); TOTAL PROTEIN 4.9 g/dL (6.3-8.2)
[2017-06-08] MEDS: SENNOSIDES/DOCUSATE SODIUM TAB PO SCH ×2 (09:10→22:09)
[2017-06-08] MEDS: ASPIRIN 81 MG CHEWABLE TAB PO SCH (09:35)
[2017-06-08] MEDS: GLUCOSAMINE/CHONDROITIN CAP PO SCH (09:35)
[2017-06-08] MEDS: ACETAMINOPHEN 500 MG TAB PO SCH ×3 (09:35→21:50)
[2017-06-08] MEDS: ASCORBIC ACID 500 MG TAB PO SCH (09:36)
[2017-06-08] MEDS: ENOXAPARIN 40 MG/0.4 ML SYR SC SCH (09:36)
[2017-06-08] MEDS: CYCLOBENZAPRINE 10 MG TAB PO PRN ×2 (09:36→17:30)
[2017-06-08] MEDS: ceFAZolin 2 GM/DEXTROSE 100 ML IV SCH ×2 (09:36→15:48)
[2017-06-08] MEDS: KETOROLAC 15 MG/1 ML SDV IVP PRN ×2 (09:36→15:49)
--- NOTE | 2017-06-08 11:29 | HOSPPROG ---
Hospitalist Progress Note Assessment/Plan: patient is an 81 y/o female who presented to the ER with left hip pain. She had received steroid injections for ongoing osteoarthritic pain. It was noted that she had Staph lugdunensis bacteremia and septic arthritis. She is s/p I & D of the left hip. * Staph lugdunensis Bacteremia tolerating Ancef well PICC to be placed reviewed echo/ she will get a repeat echo *septic arthritis/left hip WBAT *Pain scheduled Tylenol, Flexeril, Toradol will need close watching of renal fx with the Toradol *acute encephalopathy resolved with discontinuing pain medications *Transaminitis LFT's have trended down *hyponatremia lower today/will check urine studies encouraged her to drink ensure/avoid water *anemia will follow *dvt prophylaxis: LMWH *Plan: if Na level is stable, will [facility]/ Yehuda is very hopeful about being dc Subjective: Yehuda is feeling well today. Still has pain in her left hip but overall better. Objective: Vital Signs Temp Pulse Resp BP Pulse Ox 37.0 C 86 16 146/84 H 91 L 06/08/17 07:31 06/08/17 07:31 06/08/17 07:31 06/08/17 07:31 06/08/17 07:31 Microbiology 06/04/17 14:25 Gram Stain - Final Hip - Eswab 06/04/17 14:25 Gram Stain - Final Hip - Tissue 06/04/17 14:25 Gram Stain - Final Hip - Tissue 06/04/17 14:25 Gram Stain - Final Hip - Tissue 06/04/17 14:25 Gram Stain - Final Hip - Eswab 06/04/17 14:25 Gram Stain - Final Hip - Eswab 06/04/17 14:25 Gram Stain - Final Hip - Eswab Laboratory Results 06/08/17 05:10 06/08/17 05:10 06/07/17 06/08/17 06/09/17 05:59 05:59 05:59 Intake Total 1300 300 Output Total 375 375 300 Balance 925 -75 -300 - Physical Exam Constitutional: no apparent distress, appears nourished, No not in pain (has some hip pain, but is well managed) Ears, Nose, Mouth, Throat: hearing normal Respiratory: no respiratory distress Gastrointestinal: normoactive bowel sounds Skin: warm Musculoskeletal: generalized weakness Neurologic: AAOx3 Psychiatric: interacting appropriately, not anxious ICD10 Worksheet Patient Problems: Problems Problem Status Onset Bacteremia due to Staphylococcus Acute Left hip pain Acute Osteoarthritis Acute Primary osteoarthritis of left knee Acute
--- NOTE | 2017-06-08 13:02 | PCMIDPN ---
Assessment/Plan: Assessment/Plan: * Staph lugdunensis bacteremia/left hip septic arthritis status post incision and drainage: Repeat blood culture show clearing of bacteremia. Reviewed echocardiogram findings with Cardiology. TTE without evidence of surgical valvular disease. Will plan repeat TTE for further evaluation in approximately 7-10 days. 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 Tolerating cefazolin to date. Continue cefazolin with anticipated 6 week course of therapy. Discharge likely dependent on patient's overall functional status. 06/08/17 12:58 06/08/17 12:59 Subjective: Patient feels better with less left hip pain. Tolerating cefazolin to date. Complains of few episodes of diarrhea. Objective: Vital Signs Temp Pulse Resp BP Pulse Ox 37.0 C 86 16 146/84 H 91 L 06/08/17 07:31 06/08/17 07:31 06/08/17 07:31 06/08/17 07:31 06/08/17 07:31 Microbiology 06/04/17 14:25 Gram Stain - Final Hip - Eswab 06/04/17 14:25 Gram Stain - Final Hip - Tissue 06/04/17 14:25 Gram Stain - Final Hip - Tissue 06/04/17 14:25 Gram Stain - Final Hip - Tissue 06/04/17 14:25 Gram Stain - Final Hip - Eswab 06/04/17 14:25 Gram Stain - Final Hip - Eswab 06/04/17 14:25 Gram Stain - Final Hip - Eswab Laboratory Results 06/08/17 05:10 06/08/17 05:10 06/07/17 06/08/17 06/09/17 05:59 05:59 05:59 Intake Total 1300 300 Output Total 375 375 300 Balance 925 -75 -300 Cefazolin # 1, antibiotics # 5 Blood cultures 06/05/2017 no growth - Physical Exam General Appearance: alert, no apparent distress EENT: No scleral icterus, No conjunctival petechiae Respiratory: lungs clear, No respiratory distress Cardiac/Chest: regular rate, rhythm, systolic murmur (2/6 left upper sternal border) Extremities: other (Decreased hip tenderness without overlying erythema) Abdomen: non-tender, No distended Skin: No embolic lesions ICD10 Worksheet Patient Problems: Problems Problem Status Onset Bacteremia due to Staphylococcus Acute Left hip pain Acute Osteoarthritis Acute Primary osteoarthritis of left knee Acute
--- NOTE | 2017-06-08 15:21 | PDIAF ---
- Diagnosis Diagnosis: Staph lugdunensis bacteremia/septic arthritis left hip Code Status: Full Code - Medication Management Discharge Medications: Medications to Continue on Transfer Ascorbic Acid [Vitamin C 500 mg (*)] 500 mg PO DAILY 10/31/13 [Last Taken ] Aspirin [Aspirin 81mg (*)] 81 mg PO DAILY 10/31/13 [Last Taken 06/04/17] Glucosamine/Chondroitin [Glucosamine/Chondroitin (*)] 1 each PO DAILY 10/31/13 [ Last Taken 06/04/17] Herbals/Supplements -Info Only 1 ea PO DAILY 04/25/17 [Last Taken Unknown] Docusate Sodium [Colace 100 MG (*)] 100 mg PO BID PRN 06/04/17 [Last Taken Unknown] Ibuprofen [Motrin (*)] 600 mg PO BID 06/05/17 [Last Taken Unknown] oxyCODONE HCL [Oxycontin] 10 mg PO BID 06/05/17 [Last Taken 06/05/17] oxyCODONE IR [Oxycodone Ir (*)] 5 mg PO Q4HRS PRN 06/05/17 [Last Taken 06/05/17 09:00] Ultrasonic Seaming Machine Operator Antibiotics: Ancef 2 g IV q.8 hours Ultrasonic Seaming Machine Operator Antibiotic Stop Date: 07/17/17 Discharge Medications: Refer to the Discharge Home Medication list for PRN reason. PICC Care - Routine: Yes - Labs/Radiology CBC Date: 06/12/17 (Weekly Q Monday) CMP Date: 06/12/17 (Weekly Q Monday) CRP Date: 06/12/17 (Weekly Q Monday) Call or Fax Lab and Imaging Results to: Dr. Gallego [phone] - Follow Up Care Current Providers and Referrals: Colton Plata MD [Primary Care Provider] - Colton Gallego MD [Medical Doctor] - 06/21/17 11:00 am
--- NOTE | 2017-06-08 17:43 | SOAPPROG ---
SOAP Progress Note Assessment/Plan: Assessment: Pt is POD #4 from left hip irrigation and debridement. She reports the pain has improved significantly PE: Surgical dressing over the posterolateral hip clean and dry NV intact LLE Minimal pain with gentle ROM left hip Plan: 1. Antibiotics per infectious disease 2. WBAT LLE. Posterior hip precautions 3. Abductor wedge to be in place when patient in bed 4. PT/OT 5. Keep dressing clean and dry. Reinforce if needed 6. Pt is planning to transfer to rehab facility tomorrow. Follow up with Yari Sahu PA-C at [facility] on 06/19/17 for wound check and staple removal. 06/08/17 17:41 Objective: Vital Signs Temp Pulse Resp BP Pulse Ox 36.8 C 88 14 133/68 H 94 06/08/17 15:44 06/08/17 15:44 06/08/17 15:44 06/08/17 15:44 06/08/17 15:44 Microbiology 06/04/17 14:25 Gram Stain - Final Hip - Eswab 06/04/17 14:25 Mycobacterial Smear (CHAYA) - Final Hip - Eswab Mycobacterial Culture - Final 06/04/17 14:25 Gram Stain - Final Hip - Eswab 06/04/17 14:25 Gram Stain - Final Hip - Tissue 06/04/17 14:25 Gram Stain - Final Hip - Tissue 06/04/17 14:25 Gram Stain - Final Hip - Eswab 06/04/17 14:25 Gram Stain - Final Hip - Tissue 06/04/17 14:25 Gram Stain - Final Hip - Eswab Laboratory Results 06/08/17 05:10 06/08/17 05:10 06/07/17 06/08/17 06/09/17 05:59 05:59 05:59 Intake Total 1300 300 Output Total 375 375 300 Balance 925 -75 -300 ICD10 Worksheet Patient Problems: Problems Problem Status Onset Bacteremia due to Staphylococcus Acute Left hip pain Acute Osteoarthritis Acute Primary osteoarthritis of left knee Acute
[2017-06-09 00:06] VITALS: O2SAT 91
[2017-06-09] MEDS: ceFAZolin 2 GM/DEXTROSE 100 ML IV SCH ×2 (00:34→07:49)
[2017-06-09] MEDS: CYCLOBENZAPRINE 10 MG TAB PO PRN ×2 (00:57→12:46)
[2017-06-09 05:53] LABS: ANION GAP 6 mEq/L (8-16); CARBON DIOXIDE 25 mEq/l (22-31); CHLORIDE 99 mEq/L (97-110); CREATININE 0.9 mg/dL (0.6-1.0); GLOMERULAR FILTRATION RATE 60; GLUCOSE 93 mg/dL (70-100); POTASSIUM 3.9 mEq/L (3.5-5.2); SODIUM 130 mEq/L (134-144)
[2017-06-09] MEDS: SENNOSIDES/DOCUSATE SODIUM TAB PO SCH (07:49)
[2017-06-09 08:09] VITALS: PULSE 81; RESP 20; TEMP 98.1
[2017-06-09 08:10] VITALS: BP 144/74
[2017-06-09] MEDS: GLUCOSAMINE/CHONDROITIN CAP PO SCH (08:34)
[2017-06-09] MEDS: ASCORBIC ACID 500 MG TAB PO SCH (08:34)
[2017-06-09] MEDS: ACETAMINOPHEN 500 MG TAB PO SCH (08:34)
[2017-06-09] MEDS: ASPIRIN 81 MG CHEWABLE TAB PO SCH (08:34)
[2017-06-09] MEDS: ENOXAPARIN 40 MG/0.4 ML SYR SC SCH (08:35)
--- NOTE | 2017-06-09 09:28 | HOSPPROG ---
Hospitalist Progress Note Assessment/Plan: patient is an 81 y/o female who presented to the ER with left hip pain. She had received steroid injections for ongoing osteoarthritic pain. It was noted that she had Staph lugdunensis bacteremia and septic arthritis. She is s/p I & D of the left hip. * Staph lugdunensis Bacteremia tolerating Ancef well PICC reviewed echo/ she will get a repeat echo in one week *septic arthritis/left hip WBAT *Pain scheduled Tylenol, Flexeril, Toradol will need close watching of renal fx with the Toradol *acute encephalopathy resolved with discontinuing pain medications *Transaminitis LFT's have trended down *hyponatremia/hypovolemic urine Na 7 encouraged her to drink ensure/avoid water *anemia will follow *dvt prophylaxis: LMWH *Plan: dc today Subjective: Yehuda is in good spirits, slept well and ready to go to rehab Objective: Vital Signs Temp Pulse Resp BP Pulse Ox 36.7 C 81 20 144/74 H 91 L 06/09/17 08:00 06/09/17 08:00 06/09/17 08:00 06/09/17 08:00 06/09/17 08:00 Microbiology 06/04/17 14:25 Gram Stain - Final Hip - Eswab 06/04/17 14:25 Mycobacterial Smear (CHAYA) - Final Hip - Eswab Mycobacterial Culture - Final 06/04/17 14:25 Gram Stain - Final Hip - Eswab 06/04/17 14:25 Gram Stain - Final Hip - Tissue 06/04/17 14:25 Gram Stain - Final Hip - Tissue 06/04/17 14:25 Gram Stain - Final Hip - Eswab 06/04/17 14:25 Gram Stain - Final Hip - Tissue 06/04/17 14:25 Gram Stain - Final Hip - Eswab Laboratory Results 06/08/17 05:10 06/09/17 05:15 06/08/17 06/09/17 06/10/17 05:59 05:59 05:59 Intake Total 300 300 Output Total 375 450 500 Balance -75 -150 -500 - Physical Exam Constitutional: no apparent distress, appears nourished, not in pain Eyes: PERRL Ears, Nose, Mouth, Throat: hearing normal Respiratory: no respiratory distress Skin: warm Neurologic: AAOx3 Psychiatric: interacting appropriately, not anxious ICD10 Worksheet Patient Problems: Problems Problem Status Onset Bacteremia due to Staphylococcus Acute Left hip pain Acute Osteoarthritis Acute Primary osteoarthritis of left knee Acute
--- NOTE | 2017-06-09 09:45 | PDIAF ---
- Diagnosis Diagnosis: Staph lugdunensis bacteremia/septic arthritis left hip/ hyponatremia Code Status: Full Code - Medication Management Discharge Medications: Medications to Continue on Transfer Ascorbic Acid [Vitamin C 500 mg (*)] 500 mg PO DAILY 10/31/13 [Last Taken ] Aspirin [Aspirin 81mg (*)] 81 mg PO DAILY 10/31/13 [Last Taken 06/04/17] Glucosamine/Chondroitin [Glucosamine/Chondroitin (*)] 1 each PO DAILY 10/31/13 [ Last Taken 06/04/17] Acetaminophen [Tylenol ES 500 mg (*)] 1,000 mg PO TID tab 06/09/17 [Last Taken Unknown] Cyclobenzaprine [Flexeril 10 MG (*)] 5 - 10 mg PO TID PRN #0 tab 06/09/17 [Last Taken Unknown] Ibuprofen [Motrin (*)] 600 mg PO Q6HRS PRN #0 tab 06/09/17 [Last Taken Unknown] Polyethylene Glycol 3350 [Miralax 17 gm (*)] 17 gm PO DAILY PRN #0 pkt 06/09/17 [Last Taken Unknown] Sennosides/Docusate Sodium [Senokot-S] 1 - 2 tab PO BID tab 06/09/17 [Last Taken Unknown] oxyCODONE IR [Oxycodone Ir (*)] 2.5 - 10 mg PO Q4HRS PRN #0 tab 06/09/17 [Last Taken Unknown] Fiberglass Fabricator Antibiotics: Ancef 2 g IV q.8 hours Fiberglass Fabricator Antibiotic Stop Date: 07/17/17 Discharge Medications: Refer to the Discharge Home Medication list for PRN reason. PICC Care - Routine: Yes - Orders Services needed: Physical Therapy, Occupational Therapy Diet Recommendation: other (add salt to meals) Diet Texture: Regular Texture Diet Activity/Weight Bearing Restrictions: wbat Additional: f/u with Yari Sahu on 06/19/17 for staple removal from hip. Patient also needs an echo in one week for f/u care. Encourage oral intake/has low Na levels. - Labs/Radiology CBC Date: 06/12/17 (Weekly Q Monday) CMP Date: 06/12/17 (Weekly Q Monday) CRP Date: 06/12/17 (Weekly Q Monday) Call or Fax Lab and Imaging Results to: Dr. King Marshall [phone] - Follow Up Care Current Providers and Referrals: Colton Plata MD [Primary Care Provider] - Colton Gallego MD [Medical Doctor] - 06/21/17 11:00 am Alexis Luna MD [Medical Doctor] -
--- NOTE | 2017-06-09 15:44 | GDS ---
[f rep st] DISCHARGE SUMMARY DISCHARGE DIAGNOSES: 1. Staph aureus lugdunensis bacteremia. 2. Left hip septic arthritis. 3. Pain, due to this. 4. Acute encephalopathy. 5. Transaminitis. 6. Hyponatremia. 7. Anemia. CONSULTATIONS DURING STAY: 1. Dr. Alexis Luna. 2. Dr. Colton Gallego. BRIEF HISTORY: The patient is an 81-year-old woman, who presented the emergency room with acute hip pain in the left hip area. During her stay, she was seen and evaluated by Dr. Alexis Luna, who did an I and D of the left hip. The culture from her hip grew out Staphylococcus lugdunensis. She was treated with cefazolin and has improved nicely. The plan is for her to go to [facility] today, and she will follow up with Dr. Gallego in the outpatient setting. HOSPITAL COURSE: 1. Staph lugdunensis bacteremia. She is on Ancef. She has a PICC line in place. She will need a repeat echocardiogram in 1 week. I spoke with [facility] to ask them to arrange this 2. Left hip septic arthritis. She is status post I and D of the hip. She is weightbearing as tolerated. She has sandor in place that need removal. 3. Pain. She is on Tylenol, Flexeril and ibuprofen. 4. Acute encephalopathy, suspect this was all secondary from her pain medications. This improved once these were changed. 5. Transaminitis, improved. 6. Hyponatremia. This is likely due to hypovolemia with a low urine sodium. She has been drinking Ensure and increasing her solute intake. Will have this checked at the nursing home facility. 7. Anemia, stable. CONDITION AT DISCHARGE: Stable. Blood pressure is 144/74, heart rate is 81, respiratory rate is 20, O2 sats on room air are 91%, temperature is 36.7 Celsius. MEDICATIONS AT DISCHARGE: Please see the EMR. DISCHARGE INSTRUCTIONS: 1. To get a repeat echo in approximately a week. 2. To follow up with Dr. Gallego. 3. To follow up with Yari Sahu, physician assistant professor in family studies with Orthopedics, to get her sandor removed. Greater than 30 minutes discharging and coordinating care. /[id number]/MODL MTDD
--- NOTE | 2017-06-13 08:56 | PQFORM ---
PHYSICIAN QUERY FORM Needs Your Response This query form is being sent to you to assure this patient record is coded properly. Please respond to the question below: ELECTRICAL PLUMBING SUPERVISOR QUESTION: Dr Luna Please document whether the debridement performed was XXXX Excisional ___ Non Excisional ___ Other Thank You Moni CLARKE Gang Ripsaw Operator INSTRUCTIONS FOR RESPONSE: Answer question by clicking on the "Edit Document" button. Move cursor to area below the stars. When complete, hit "Save." Click on the "Sign" button, then click "Sign" again. Type in your PIN and hit "Enter." MTDD
== END 2017-06-09 13:30 | DRG 480 ==
LOC: F3N 11:15 → EEVIPCON 13:40 → OBSVTOIN 13:40
PROVIDERS: ADMIT Internal Medicine Pulmonary Disease; ATTEND Internal Medicine Pulmonary Disease
PROC: 0SBB0ZZ Excision of Left Hip Joint, Open Approach (ICD-10-PCS; principal; 2017-06-04 13:00)
PROC: 3E1U38Z Irrigation of Joints using Irrigating Substance, Percutaneous Approach (ICD-10-PCS; principal; 2017-06-04 13:00)
PROC: 02HV33Z Insertion of Infusion Device into Superior Vena Cava, Percutaneous Approach (ICD-10-PCS; 2017-06-07)
DX: M00.052 Staphylococcal arthritis, left hip (principal); R78.81 Bacteremia; G92 Toxic encephalopathy; T40.605A Adverse effect of unspecified narcotics, initial encounter; M16.0 Bilateral primary osteoarthritis of hip; R74.0 Nonspecific elevation of levels of transaminase and lactic acid dehydrogenase [LDH]; E87.1 Hypo-osmolality and hyponatremia; D64.9 Anemia, unspecified; M81.0 Age-related osteoporosis without current pathological fracture; Z85.3 Personal history of malignant neoplasm of breast; Z92.3 Personal history of irradiation; Z96.652 Presence of left artificial knee joint
CPT/HCPCS: 97116-GP; 97161-GP; 97166-GO; 97530-GP; 97535-GO; C1751; G8978-GP-CL; G8979-GP-CJ; G8987-GO-CM; G8988-GO-CJ; J0690; J1100; J1170; J1650; J1885; J2001; J2405; J2704; J3010; J3370; J3490

== ENCOUNTER 2017-06-28 08:15 | Inpatient (IN) | payer OTHER ==
[2017-09-13] MEDS ORDERED: ROPIVACAINE 0.2% 80 MG, EPINEPHrine 0.2 MG, KETOROLAC TROMETHAMINE 30 MG in BAG 0 ML IU ONE (06:00)
[2017-09-13] MEDS ORDERED: TRANEXAMIC ACID 3,000 MG in NS 50 ML IRR ONE (06:00)
[2017-09-13] MEDS ORDERED: TRANEXAMIC ACID 3,000 MG/50 ML BAG IRR ONE (10:43)
[2017-09-13] MEDS ORDERED: POVIDONE-IODINE 20 ML in SODIUM CL IRRIG SOLUTION 500 ML IRR ONE ×2 (11:30→11:38)
[2017-09-13] MEDS ORDERED: DEXAMETHASONE 4 MG/ML VIAL IVP ONE (11:38)
[2017-09-13] MEDS ORDERED: ceFAZolin 2 GM/SWFI 2 GM/20 ML SYR IVP ONE (11:38)
[2017-09-13] MEDS ORDERED: FAMOTIDINE 20 MG TAB PO ONE (11:38)
[2017-09-13] MEDS ORDERED: ACETAMINOPHEN 325 MG TAB PO ONE (11:38)
[2017-09-13] MEDS ORDERED: LR 1,000 ML IV ONE (11:39)
[2017-09-13] MEDS ORDERED: LIDOCAINE 1% 2 ML INJ ID PRN (11:39)
--- NOTE | 2017-09-13 12:07 | PDHPUP ---
History & Physical Update H&P update statement: This history and physical update is based on an assessment of the patient which was completed after admission or registration (within 24 hours), but prior to the surgery/procedure. H&P update: H&P reviewed & patient examined, no change in patient's condition since H&P completed
[2017-09-13] MEDS ORDERED: MIDAZOLAM 2 MG/2 ML VIAL IVP ONE (12:31)
[2017-09-13] MEDS ORDERED: MIDAZOLAM 2 MG/2 ML VIAL ONE (12:32)
--- NOTE | 2017-09-13 12:34 | PDANEPAE ---
ANE History of Present Illness djd s/f L JOYCELYN ANE Past Medical History - Cardiovascular History Hx Hypertension: No Hx Arrhythmias: No Hx Chest Pain: No Hx Coronary Artery / Peripheral Vascular Disease: No Hx CHF / Valvular Disease: No Hx Palpitations: No Cardiovascular History Comment: denies chest pain, palp. unsure family hx. - Pulmonary History Hx COPD: No Hx Asthma/Reactive Airway Disease: No Hx Recent Upper Respiratory Infection: No Hx Oxygen in Use at Home: No Hx Sleep Apnea: No Sleep Apnea Screening Result - Last Documented: Negative Pulmonary History Comment: denies sob up 2 flights. 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 Polio hx -no residual affects. - Chronic Pain History Chronic Pain: No - Surgical History Prior Surgeries: L total knee 2014. l knee arthroscopy. 1996. L mastectomy 1996. r lg toe orif. neuroma R ft. bilat carpal tunnels. "anchovie" procedure R hand ANE Review of Systems Review of Systems: - Exercise capacity METS (RN): 4 METS ANE Patient History - Allergies Allergies/Adverse Reactions: Penicillins Allergy (Verified 05/02/17 10:06) Other-Enter Comments midazolam HCl [From Versed] Adverse Reaction (Verified 09/13/17 12:33) Other-Enter Comments - Home Medications Home medications: home medication list seen and reviewed Home Medications: Acetaminophen [Tylenol ES 500 mg (*)] 500 mg PO TID PRN 09/12/17 [Last Taken 06/22 04:00] Aspirin [Aspirin 81mg (*)] 81 mg PO DAILY 09/12/17 [Last Taken 09/06/17] Herbals/Supplements -Info Only 1 ea PO DAILY 09/12/17 [Last Taken Unknown] oxyCODONE IR [Oxycodone Ir (*)] 2.5 mg PO Q4-6PRN PRN 09/12/17 [Last Taken 08/30] - NPO status NPO Status: no food or drink >8 hours NPO Since - Liquids (Date): 06/04/17 NPO Since - Liquids (Time): 08:30 NPO Since - Solids (Date): 06/04/17 NPO Since - Solids (Time): 08:30 - Anes Hx Anes Hx: no prior problems - Smoking Hx Smoking Status: Former smoker - Alcohol Use Alcohol Use: Rarely - Family Anes Hx Family Anes Hx: none Family Hx Anesthesia Complications: none ANE Labs/Vital Signs - Labs - CBC WBC: reviewed - Vital Signs Blood Pressure: 167/87 Heart Rate: 94 Respiratory Rate: 14 O2 Sat (%): 95 Height: 160.02 cm Weight: 68.039 kg ANE Physical Exam - Airway Neck exam: decreased ROM Mallampati Score: Class 1 Mouth exam: normal dental/mouth exam - Pulmonary Pulmonary: no respiratory distress - Cardiovascular Cardiovascular: regular rate and rhythym - ASA Status ASA Status: II ANE Anesthesia Plan Anesthesia Plan: spinal (R/B/A explained and patient agrees to proceed.)
[2017-09-13] MEDS ORDERED: PROPOFOL/EMULSION 500 MG/50 ML BOTTLE IV ONE (13:03)
[2017-09-13] MEDS ORDERED: fentaNYL 100 MCG/2 ML INJ ONE (13:03)
[2017-09-13] MEDS ORDERED: CYCLOBENZAPRINE 10 MG TAB PO PRN (13:25)
[2017-09-13] MEDS ORDERED: BISACODYL 10 MG SUPP PR PRN (13:25)
[2017-09-13] MEDS ORDERED: diphenhydrAMINE 25 MG CAP PO PRN (13:25)
[2017-09-13] MEDS ORDERED: MAGNESIUM HYDROXIDE 30 ML UDCUP PO PRN (13:25)
[2017-09-13] MEDS ORDERED: POLYETHYLENE GLYCOL 3350 17 GM PKT PO PRN (13:25)
[2017-09-13] MEDS ORDERED: ONDANSETRON 4 MG/2 ML VIAL IVP PRN ×2 (13:25→14:16)
[2017-09-13] MEDS ORDERED: LACTULOSE 20 GM/30 ML UDCUP PO PRN (13:25)
[2017-09-13] MEDS ORDERED: PROMETHAZINE HCL 25 MG/ML INJ IVP PRN ×2 (13:25→14:16)
[2017-09-13] MEDS ORDERED: DIPHENOXYLATE/ATROPINE LOMOTIL 1 TAB PO PRN (13:25)
[2017-09-13] MEDS ORDERED: METOCLOPRAMIDE 10 MG/2 ML VIAL IVP PRN ×2 (13:25→14:16)
[2017-09-13] MEDS ORDERED: ONDANSETRON DISINTEGRATING 4 MG TAB PO PRN (13:25)
[2017-09-13] MEDS ORDERED: PROMETHAZINE HCL 25 MG SUPPR PR PRN (13:25)
[2017-09-13] MEDS ORDERED: TEMAZEPAM 15 MG CAP PO PRN (13:25)
[2017-09-13] MEDS ORDERED: PROPOFOL 200 MG/20 ML VIAL ONE (14:01)
[2017-09-13] MEDS ORDERED: OXYCODONE/APAP 5/325 TAB PO PRN (14:16)
[2017-09-13] MEDS ORDERED: DEXAMETHASONE 4 MG/ML VIAL IVP PRN (14:16)
[2017-09-13] MEDS ORDERED: HYDROCODONE/APAP 5/325 TAB PO PRN (14:16)
[2017-09-13] MEDS ORDERED: NALOXONE HCL 0.4 MG/ML INJ IVP PRN (14:16)
[2017-09-13] MEDS ORDERED: MEPERIDINE 25 MG/ML SYR IVP PRN (14:16)
[2017-09-13] MEDS ORDERED: ACETAMINOPHEN 500 MG TAB PO PRN (14:16)
[2017-09-13] MEDS ORDERED: LABETALOL HCL 5 MG/ML 20 ML MDV IVP PRN (14:16)
[2017-09-13] MEDS ORDERED: LR 500 ML IV PRN (14:16)
[2017-09-13] MEDS ORDERED: ALBUTEROL 3 ML DEYVIAL IH PRN (14:16)
[2017-09-13] MEDS ORDERED: HYDROmorphONE/DILAUDID 1 MG/ML INJ IVP PRN (14:16)
[2017-09-13] MEDS ORDERED: fentaNYL 100 MCG/2 ML INJ IVP PRN (14:16)
--- NOTE | 2017-09-13 14:47 | POSTOPPROG ---
Post Op Note Date of Operation: 09/13/17 Surgeon: Maurice Beltre Librarian Special Library: Bessie HUMPHREY Anesthesiologist: Tushra Anesthesia: Spinal Pre-op Diagnosis: l hip DJD Post-op Diagnosis: same Indication: pain Procedure: L JOYCELYN Findings: DJD hip Inf/Abcess present in the surg proc area at time of surgery?: No EBL: 100-500
--- NOTE | 2017-09-13 15:00 | POSTANESTH ---
Post Anesthetic Evaluation Cardiovascular Status: Normal, Stable Respiratory Status: Normal, Stable Level of Consciousness/Mental Status: Can Participate in Eval Pain Control: Adequate, Prn Tx Ordered Nausea/Vomiting Control: Adequate, Prn Tx Ordered Complications Possibly Related to Anesthesia: None Noted
[2017-09-13] MEDS: LR 1,000 ML IV SCH ×2 (16:27→23:51)
[2017-09-13] MEDS: ACETAMINOPHEN 325 MG TAB PO SCH ×2 (18:13→23:47)
[2017-09-13] MEDS: SENNOSIDES/DOCUSATE SODIUM TAB PO SCH (20:18)
[2017-09-13] MEDS: FAMOTIDINE 20 MG TAB PO SCH (20:18)
[2017-09-13] MEDS: ASPIRIN 325 MG TAB PO SCH (20:18)
[2017-09-13] MEDS: oxyCODONE IR 5 MG TAB PO PRN ×2 (20:18→23:48)
[2017-09-13] MEDS: ceFAZolin 2 GM/DEXTROSE 100 ML IV SCH (20:19)
[2017-09-14] MEDS: ceFAZolin 2 GM/DEXTROSE 100 ML IV SCH (04:01)
--- NOTE | 2017-09-14 05:24 | GOP ---
[f rep st] OPERATIVE REPORT DATE OF OPERATION: 09/13/2017 SURGEON: Noel Beltre MD ELEMENTARY EDUCATION TUTOR: Bessie Beltre PA-C ANESTHESIA: Spinal. PREOPERATIVE DIAGNOSIS: Left hip osteoarthritis. POSTOPERATIVE DIAGNOSIS: Left hip osteoarthritis. PROCEDURE PERFORMED: Left total hip arthroplasty with x-ray. FINDINGS: ESTIMATED BLOOD LOSS: 200 cc. INDICATIONS: The patient has progressively worsening arthritis of the hip which has failed medical m anagement. The patient understands the treatment options including continued non-operative care and has selected surgical intervention. The patient has decided to undergo total hip arthroplasty via th e direct anterior approach, understanding the risks of the procedure including, but not limited to, n eurovascular injury, infection, persistent pain, component wear and loosening, deep venous thrombosis , pulmonary embolism, limb length inequality, hip instability (including dislocation), and intra-oper ative fractures. DESCRIPTION OF PROCEDURE: After proper identification of the patient including verification and mynor ing the surgical site, the patient was brought to the operating room and placed in the supine positio n. All bony prominences were well padded. Anesthesia was induced without complication and intraveno us prophylactic antibiotics were administered prior to skin incision. The operative leg was placed in the Trumpf Arch table extension and the well leg in a Yellofin leg ho lder. The patient was prepped and draped in the usual sterile fashion. The C-arm was draped for int ra-operative fluoroscopy to check acetabular position, femoral component position including leg lengt h and femoral offset. Attention was then drawn to surgical exposure of the hip. An incision was made with a #10 Bard Bravo r blade starting 3 cm lateral and 3 cm distal to the anterior superior iliac spine measuring 8-10 cm and coursing distally toward the greater trochanter. The skin and subcutaneous tissues were divided sharply down to the fascia flaco. The fascia flaco was incised in line with the skin incision exposing the underlying tensor fascia flaco muscle. The muscle was bluntly elevated from the fascia and the f irst extracapsular Cobra retractor was placed laterally at the junction of the superior femoral neck and greater trochanter. The lateral femoral circumflex vessels were identified, cauterized, and divi ded with the Aquamantys bipolar cautery. The deep investing fascia of the TFL was divided to allow p rad mobilization of the muscle preventing damage during the retraction. The reflected head of the rectus femoris muscle was elevated off the anterior hip capsule and a medial Cobra retractor was plac ed just proximal to the lesser trochanter. The anterior capsulotomy was made sharply from the superolateral acetabulum to the saddle junction of the superior femoral neck and greater trochanter, then coursing inferomedial towards the lesser troc hanter. The retractors were then placed in the intracapsular position for femoral neck osteotomy. C orresponding to pre-operative templating, the osteotomy was made with the oscillating saw carefully p rotecting the greater trochanter and soft tissues. The femoral head was removed from the acetabulum with a corkscrew and confirmed to be severely arthritic with exposed bone, deformity and osteophytes. Similar findings were confirmed in the acetabulum. The Arch table extension was then placed in 40 degrees external rotation. Attention was then drawn to the acetabular preparation. After placement of the anterior and posterio r Cobra retractors outside the labrum and intracapsular, the circumferential labrum was removed sharp ly. The foveal contents were then removed and hemostasis obtained with cautery. The first reamer selected was sized using the removed femoral head. Reaming began with medialization and then commenced in 2 mm increments at 45 degrees of abduction and 15 degrees of anteversion using fluoroscopic navigation. Reaming ceased 1 mm less than the definitive acetabular component and anju esponded to the pre-operative templating. The final acetabular component was inserted using fluorosc opy to achieve proper orientation yielding excellent purchase and stability in the acetabulum. The f inal acetabular liner was then placed and its seating confirmed. Attention was then turned to the femur. The Arch table extension was placed in extension and adducti on, delivering the osteotomized femoral neck into the wound. A 2-pronged femoral elevator was placed at the calcar and another at the tip of the greater trochanter. The posterolateral capsule was rele ased with cautery allowing mobilization of the femur lateral and anterior for preparation. The exter nal rotators were visualized and preserved. A curette and rongeur were used to open the starting poi nt for broaching. Serial broaching started with the #0 broach and ended with the broach that exhibit ed excellent fit in the proximal femur. A change in pitch during mallet strikes was accompanied by t he inability to advance the broach any further. The trial reduction was performed and fluoroscopic n avigation was utilized to check limb length. Adjustments were made to equalize limb length according ly. After the final trials were accepted they were removed and the wound was copiously lavaged. The femo ral component was seated to the same depth as the final broach and the femoral head was impacted onto the clean trunnion. The hip was then reduced for the final time and once more fluoroscopy was used to check that limb length equality was achieved. The wound was irrigated and closed in layers, the fascia flaco with 2-0 Quill, the subcutaneous tissue with 2-0 Quill, and the skin with Dermabond. Sterile dressings were applied. Final sharps and spon ge counts were accurate. The patient was then transferred to a hospital bed and brought to the [facility] room in stable condition. SURGEON: Noel Beltre MD IMPLANTS: Accolade II, size 4 at 127. Acetabular component a 48 mm Tritanium. The liner is a Tride nt X3, 32 mm. The head is a Biolox Delta, 32 mm +4. /[id number]/MODL
[2017-09-14] MEDS: ACETAMINOPHEN 325 MG TAB PO SCH (05:47)
[2017-09-14] MEDS: ASPIRIN 325 MG TAB PO SCH (08:59)
[2017-09-14] MEDS: FAMOTIDINE 20 MG TAB PO SCH (09:00)
[2017-09-14] MEDS: SENNOSIDES/DOCUSATE SODIUM TAB PO SCH (09:00)
[2017-09-14 09:34] VITALS: BP 128/45; PULSE 76; RESP 16; TEMP 97.5; O2SAT 98
--- NOTE | 2017-09-14 09:40 | SOAPPROG ---
SOAP Progress Note Assessment/Plan: Assessment: Patient is doing well POD 1 s/p L JOYCELYN Pain management: pain is well controlled on oral pain meds. VTE ppx: recommend aspirin daily for 3 weeks, cont TYSON and SCDs Anemia: level is expected initially postop. Asymptomatic. Continue to monitor D/c planning: d/c to home today pending release from PT Plan: 09/14/17 09:39 Subjective: Yehuda is doing well today, denies SOB, chest pain and n/v. Objective: Vital Signs Temp Pulse Resp BP Pulse Ox 36.4 C 76 16 128/45 H 98 09/14/17 09:34 09/14/17 09:34 09/14/17 09:34 09/14/17 09:34 09/14/17 09:34 Laboratory Results 09/14/17 04:49 09/14/17 04:49 09/13/17 09/14/17 09/15/17 05:59 05:59 05:59 Intake Total 2599 Output Total 1400 Balance 1199 LLE; incision dressing is clean and dry, NVI, +pf/df ICD10 Worksheet Patient Problems: Problems Problem Status Onset Primary localized osteoarthritis of left hip Acute Bacteremia due to Staphylococcus Acute Left hip pain Acute Osteoarthritis Acute Primary osteoarthritis of left knee Acute
--- NOTE | 2017-09-14 12:02 | ASDISCHSUM ---
Discharge Information Plan Status:Home with No Needs Medically Cleared to Leave: Discharge Date:09/14/2017 10:32 AM CM D/C Disposition:Home, Routine, Self-Care ADT D/C Disposition:Home, Routine, Self-Care Projected Discharge Date:09/14/2017 10:32 AM Transportation at D/C:Family Discharge Delay Reason: Follow-Up Date:09/14/2017 10:32 AM Discharge Slot: Final Diagnosis: Placement Information Patient Contact Information Contact Name:DIPIKA Relationship: Address:[facility] [address] RIBE[address] [place]:[facility] Phone: [facility] Code:[place] [address] Email: Financial Information Financial Class:Medicare Advantage Plans Primary Plan Desc:[facility] ADVANTAGE PLANS Primary Plan Number:[id number] Secondary Plan Desc: Secondary Plan Number: Assessment Information [facility] CM Progress Note CM Note CM Note Notes: Pt does not have CM order, MD did not order HHC. PT Sharee reports pt interested in HHC. Spoke w pt and who declines HHC. Pt advised to call PCP or surgeon if she gets home and decides she does want HHC PT. Pt medically stable for d/c w family support, no CM d/c needs identified. Date Signed: 09/14/2017 12:01 PM Electronically Signed By:MOISÉS Ma Intervention Information
--- NOTE | 2017-09-14 12:02 | ASDISCHSUM ---
Discharge Information Plan Status:Home with No Needs Medically Cleared to Leave: Discharge Date:09/14/2017 10:32 AM CM D/C Disposition:Home, Routine, Self-Care ADT D/C Disposition:Home, Routine, Self-Care Projected Discharge Date:09/14/2017 10:32 AM Transportation at D/C:Family Discharge Delay Reason: Follow-Up Date:09/14/2017 10:32 AM Discharge Slot: Final Diagnosis: Placement Information Patient Contact Information Contact Name:DIPIKA Relationship: Address:[facility] [address]IBE[address] [place]:[facility] Phone: [facility] Code:[place] [address] Email: Financial Information Financial Class:Medicare Advantage Plans Primary Plan Desc:[facility] ADVANTAGE PLANS Primary Plan Number:[id number] Secondary Plan Desc: Secondary Plan Number: Assessment Information [facility] CM Progress Note CM Note CM Note Notes: Pt does not have CM order, MD did not order HHC. PT Sharee reports pt interested in HHC. Spoke w pt and who declines HHC. Pt advised to call PCP or surgeon if she gets home and decides she does want HHC PT. Pt medically stable for d/c w family support, no CM d/c needs identified. Date Signed: 09/14/2017 12:01 PM Electronically Signed By:MOISÉS Ma Intervention Information
--- NOTE | 2017-09-14 12:02 | ASDISCHSUM ---
Discharge Information Plan Status:Home with No Needs Medically Cleared to Leave: Discharge Date:09/14/2017 10:32 AM CM D/C Disposition:Home, Routine, Self-Care ADT D/C Disposition:Home, Routine, Self-Care Projected Discharge Date:09/14/2017 10:32 AM Transportation at D/C:Family Discharge Delay Reason: Follow-Up Date:09/14/2017 10:32 AM Discharge Slot: Final Diagnosis: Placement Information Patient Contact Information Contact Name:DIPIKA Relationship: Address:[facility] [address] RIBEIRO [place]:[facility] Phone: [facility] Code:[place] [address] Email: Financial Information Financial Class:Medicare Advantage Plans Primary Plan Desc:[facility] ADVANTAGE PLANS Primary Plan Number:[id number] Secondary Plan Desc: Secondary Plan Number: Assessment Information [facility] CM Progress Note CM Note CM Note Notes: Pt does not have CM order, MD did not order HHC. PT Sharee reports pt interested in HHC. Spoke w pt and who declines HHC. Pt advised to call PCP or surgeon if she gets home and decides she does want HHC PT. Pt medically stable for d/c w family support, no CM d/c needs identified. Date Signed: 09/14/2017 12:01 PM Electronically Signed By:MOISÉS Ma Intervention Information
--- NOTE | 2017-09-14 17:16 | GDS ---
[f rep st] DISCHARGE SUMMARY ADMISSION DIAGNOSIS: Left hip osteoarthritis. DISCHARGE DIAGNOSIS: Left hip osteoarthritis. PROCEDURE: Left total hip arthroplasty. VTE PROPHYLAXIS: Aspirin recommended 3 weeks daily. BRIEF DESCRIPTION OF HOSPITAL STAY: Patient was admitted for an elective joint arthroplasty. The pa kaleb tolerated the procedure well and has passed physical therapy. The patient was given appropriat e antibiotic prophylaxis and venous thromboembolism prophylaxis. The patient's pain was well control led on oral pain medication, patient was holding down food, and had urinated. Decision was made to d ischarge the patient. The patient was given post-operative prescriptions pre-operatively. PLAN: Please follow up with scheduled with Dr. Beltre at [facility] on at 11:30 a.m. /[id number]/MODL
== END 2017-09-14 10:32 | disposition home or self-care (01) | DRG 470 ==
LOC: EEVIPCON 08:15 → F3N 09-13 10:53 → EEVIPCON 09-13 12:15 → F3N 09-13 15:47
PROVIDERS: ADMIT Orthopaedic Surgery; ATTEND Orthopaedic Surgery
PROC: 0SRB04Z Replacement of Left Hip Joint with Ceramic on Polyethylene Synthetic Substitute, Open Approach (ICD-10-PCS; principal; 2017-09-13 13:15)
DX: M16.12 Unilateral primary osteoarthritis, left hip (principal); Z85.3 Personal history of malignant neoplasm of breast
CPT/HCPCS: 97161-GP; 97165-GO; 97535-GO; G8978-GP-CI; G8979-GP-CI; G8980-GP-CI; G8987-GO-CI; G8988-GO-CI; G8989-GO-CI; J0171; J0690; J1100; J1885; J2250; J2704; J2795; J3010

== ENCOUNTER → 2017-07-31 | Outpatient (CLI) | payer OTHER ==
[~2017-07-31] MED LIST changes: -DEPO METHYLPREDNISOLONE 40 MG/ML SDV ONE; -IOPAMIDOL (ISOVUE 370) 100 ML BTL IV ONE; +KETOROLAC 30 MG/1 ML SDV ONE; -LIDOCAINE 1% 300 MG/30 ML SDV ONE; +LIDOCAINE 2% 5 ML SDV ONE; +MIDAZOLAM 2 MG/2 ML VIAL ONE; +ONDANSETRON 4 MG/2 ML VIAL ONE; +PROPOFOL/EMULSION 500 MG/50 ML BOTTLE IV ONE; +RANITIDINE 50 MG/2 ML VIAL ONE; +ROCURONIUM 50 MG/5 ML VIAL ONE; -ROPIVACAINE HCL 150 MG/30 ML INJ ONE; +SUGAMMADEX SODIUM 200 MG/2 ML VIAL IVP ONE; +fentaNYL 100 MCG/2 ML INJ ONE
[2017-07-31 16:10] LABS: HEMATOCRIT 31.9 % (38.0-47.0); HEMOGLOBIN 10.2 g/dL (12.6-16.3)
== END ==
LOC: CIMAGING 15:00
PROVIDERS: ATTEND Internal Medicine
DX: R60.9 Edema, unspecified (principal); M00.052 Staphylococcal arthritis, left hip; D63.8 Anemia in other chronic diseases classified elsewhere
CPT/HCPCS: 85014-PO; 85018-PO; 85652-PO; 93971-PO; J1885; J2250; J2405; J2704; J2780; J3010

== ENCOUNTER → 2017-10-12 | Outpatient (CLI) | payer OTHER | LOC: FIMAGING 09:36 | PROVIDERS: ATTEND Internal Medicine Hematology & Oncology | DX: Z12.31 Encounter for screening mammogram for malignant neoplasm of breast (principal); Z85.3 Personal history of malignant neoplasm of breast; Z90.12 Acquired absence of left breast and nipple | CPT/HCPCS: G0202-52 ==

== ENCOUNTER → 2018-10-19 | Outpatient (CLI) | payer OTHER | LOC: FIMAGING 10:20 | PROVIDERS: ATTEND Orthopaedic Surgery | DX: M51.36 Other intervertebral disc degeneration, lumbar region (principal); M51.37 Other intervertebral disc degeneration, lumbosacral region ==

== ENCOUNTER → 2018-11-14 | Outpatient (CLI) | payer OTHER | END | disposition home or self-care (01) | LOC: FIMAGING 10:33 | PROVIDERS: ATTEND Internal Medicine | DX: Z12.31 Encounter for screening mammogram for malignant neoplasm of breast (principal); Z90.12 Acquired absence of left breast and nipple; R92.1 Mammographic calcification found on diagnostic imaging of breast ==

== ENCOUNTER → 2019-04-03 | Outpatient (CLI) | payer OTHER | LOC: FIMAGING 09:41 ==